=== PATIENT | male | born 1940 | race Caucasian/White ===

== ENCOUNTER 2019-02-25 11:50 | Inpatient (IN) | payer OTHER ==
[2019-02-25] MEDS ORDERED: VANCOMYCIN 1 GM in D5W (PRE-DOCKED) 1,000 MG/250 ML IVPB ONE ×2 (14:01→15:12)
[2019-02-25] MEDS ORDERED: PIPERACILLIN/TAZOB 3.375 GM 3.375 GM in DEXTROSE 5%-WATER - 50 ML IVPB ONE ×2 (14:01→15:12)
[2019-02-25] MEDS ORDERED: SODIUM CHLORIDE 1,000 ML IV STA (14:08)
--- NOTE | 2019-02-25 14:12 | PDOC ---
History of Present Illness - General Chief Complaint: Wound Stated Complaint: LF ANKLE INJURY (WOUND CARE) Time Seen by Provider: 02/25/19 13:31 History Source: Patient Exam Limitations: No Limitations - History of Present Illness Initial Comments: 02/25/19 14:11 78yM with PMH of Venous stasis presenting to ED from wound care for venous stasis ulcer of the L ankle. Pt noticed wound 1.5-2m ago and it has not been healing. Endorses some pain and swelling with erythema of L calf. Denies fever, chills, headache, abdominal pain, n/v/d, weakness, numbness/tingling, urinary symptoms. PMD: PMH: see hpi PSH: Meds: multivitamin Allergies: nkda Past History - Past Medical History Allergies/Adverse Reactions: Allergies Allergy/AdvReac Type Severity Reaction Status Date / Time No Known Allergies Allergy Verified 02/25/19 11:55 Home Medications: Ambulatory Orders Ocuvite (Nf) - 2 tab PO DAILY 11/26/18 Anemia: No Asthma: No Cancer: No Cardiac Disorders: No CVA: No COPD: No CHF: No Dementia: No Diabetes: No GI Disorders: No Disorders: No HTN: No Hypercholesterolemia: No Liver Disease: No Seizures: No Thyroid Disease: No - Surgical History Appendectomy: Yes (at 15 years old) - Psycho Social/Smoking Cessation Hx Smoking History: Current every day smoker Have you smoked in the past 12 months: Yes Number of Cigarettes Smoked Daily: 10 Information on smoking cessation initiated: No Review of Systems - Review of Systems Constitutional: No: Symptoms Reported HEENTM: No: Symptoms Reported Respiratory: No: Symptoms reported Cardiac (ROS): No: Symptoms Reported ABD/GI: No: Symptoms Reported : No: Symptoms Reported Musculoskeletal: Yes: See HPI Integumentary: Yes: See HPI Neurological: No: Symptoms reported *Physical Exam - Vital Signs Last Vital Signs Temp Pulse Resp BP Pulse Ox 98.1 F 72 18 88/59 L 98 02/25/19 11:52 02/25/19 11:52 02/25/19 11:52 02/25/19 11:52 02/25/19 11:52 - Physical Exam General Appearance: Yes: Appropriately Dressed, Obese. No: Apparent Distress HEENT: positive: EOMI, WILMA, Normal ENT Inspection Neck: positive: Trachea midline, Supple Respiratory/Chest: positive: Lungs Clear, Normal Breath Sounds. negative: Crackles, Rales, Rhonchi, Stridor, Wheezing Cardiovascular: positive: Regular Rhythm, Regular Rate, S1, S2. negative: Edema , JVD, Murmur Vascular Pulses: Dorsalis-Pedis (R): 2+, Doralis-Pedis (L): 2+ Gastrointestinal/Abdominal: positive: Normal Bowel Sounds, Soft. negative: Tender Musculoskeletal: negative: CVA Tenderness Extremity: positive: Normal Capillary Refill, Swelling (bilateral edema up to knees. L>R), Erythema (L calf), Other (deep ulceration around 3in in diameter to bone. no drainage, no erythema, no abscess). 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 Hagan) for admission for wound care to Dr. Kramer with consult to Dr. Back and Dr. Hagan. vitals: hypotension, not tachycardic, afebrile, pt is well appearing and ambulatory. wound appears clean. biopsy taken of bone 02/18. wound cultures grew p. Mirabilis directd to call Dr. Back when patient in ER, called office number which is disconnected. Paged over head, will call on cell. basic labs, crp, esr. cxr, ekg, ankle xray ekg: nsar at 80bpm L axis, no signs of acute ischemia. will admit. pending labs and call back from Dr. Back 02/25/19 15:[address] Back, message left on cell. starting vanc/zosy. 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
--- NOTE | 2019-02-25 14:31 | PDOC ---
Attending Attestation - Resident Resident Name: Allie Segura - ED Attending Attestation I have performed the following: I have examined & evaluated the patient, The case was reviewed & discussed with the resident, I agree w/resident's findings & plan, Exceptions are as noted - HPI HPI: 02/25/19 14:29 78 M with h/o venous stasis, presenting to ED for L ankle wound. Pt reports worsening wound over the past 2 months. Notes pain and swelling + redness. No F/ C. Pt was sent in for ID and vascular eval by Dr. Kramer. - Physicial Exam PE: 02/25/19 14:30 See resident exam - Medical Decision Making 02/25/19 14:31 78 M with L ankle ulcer, likely infected. - Labs - XR to r/o osteo - ID and vascular c/s
[2019-02-25 15:03] LABS: BASO % 1.1 % (0-2.0); HEMATOCRIT 38.9 % (35.4-49); HEMOGLOBIN 12.7 GM/dL (11.7-16.9); LYMPH % 29.8 % (8-40); MCHC 32.7 g/dl (32.0-35.9); MEAN CELL VOLUME 91.7 fl (80-96); MEAN PLT VOLUME 8.6 fl (7.5-11.1); MONO % 6.9 % (3.8-10.2); NEUT % 60.2 % (42.8-82.8); PLATELET COUNT 229 K/MM3 (134-434); RBC 4.24 M/mm3 (4.00-5.60); RDW 13.8 % (11.9-15.9); WHITE BLOOD COUNT 7.7 K/mm3 (4.0-10.0)
[2019-02-25 15:19] LABS: INR 1.08 (0.83-1.09); PROTHROMBIN TIME (PATIENT) 12.8 SEC (9.7-13.0)
[2019-02-25] MEDS ORDERED: VANCOMYCIN 1 GRAM (PRE-DOCKED) 1,000 MG/250 ML BAG IVPB ONE ×2 (15:50→16:25)
[2019-02-25] MEDS ORDERED: PIPERACILLIN/TAZOB 3.375 GM 3.375 GM/50 ML BAG IVPB ONE (15:50)
[2019-02-25 15:52] LABS: ALBUMIN 3.2 g/dl (3.4-5.0); BILIRUBIN,TOTAL 0.4 mg/dL (0.2-1); BLOOD UREA NITROGEN 28.1 mg/dL (7-18); CALCIUM 8.6 mg/dL (8.5-10.1); CREATININE 1.4 mg/dL (0.55-1.3); POTASSIUM 5.1 mmol/L (3.5-5.1); TOT PROT 6.9 g/dl (6.4-8.2)
[2019-02-25 15:56] LABS: ERYTHROCYTE SEDIMENTATION RATE 81 mm/hr (0-20)
[2019-02-26 00:49] VITALS: BMI 37.5
[2019-02-26 08:19] LABS: BASO % 1.1 % (0-2.0); EOS % 4.5 % (0-4.5); HEMATOCRIT 35.7 % (35.4-49); HEMOGLOBIN 11.7 GM/dL (11.7-16.9); LYMPH % 21.3 % (8-40); MCH 29.9 pg (25.7-33.7); MCHC 32.7 g/dl (32.0-35.9); MEAN CELL VOLUME 91.3 fl (80-96); MEAN PLT VOLUME 8.8 fl (7.5-11.1); MONO % 8.5 % (3.8-10.2); NEUT % 64.6 % (42.8-82.8); PLATELET COUNT 187 K/MM3 (134-434); RBC 3.91 M/mm3 (4.00-5.60); RDW 13.6 % (11.9-15.9); WHITE BLOOD COUNT 5.7 K/mm3 (4.0-10.0)
[2019-02-26 08:43] LABS: ALBUMIN 2.5 g/dl (3.4-5.0); BILIRUBIN,TOTAL 0.5 mg/dL (0.2-1); BLOOD UREA NITROGEN 26.8 mg/dL (7-18); CALCIUM 8.1 mg/dL (8.5-10.1); CREATININE 1.2 mg/dL (0.55-1.3); POTASSIUM 4.3 mmol/L (3.5-5.1); TOT PROT 5.8 g/dl (6.4-8.2)
[2019-02-26] MEDS ORDERED: DEXTROSE 5%-WATER - 50 ML IVPB ONE (09:08)
[2019-02-26] MEDS ORDERED: cefTRIAXone SODIUM 1 GM VIAL ONE (09:08)
--- NOTE | 2019-02-26 09:18 | EKG ---
Test Reason : Blood Pressure : / mmHG Vent. Rate : 080 BPM Atrial Rate : 080 BPM P-R Int : 164 ms QRS Dur : 094 ms QT Int : 408 ms P-R-T Axes : 000 -32 033 degrees QTc Int : 470 ms POOR DATA QUALITY, INTERPRETATION MAY BE ADVERSELY AFFECTED NORMAL SINUS RHYTHM WITH SINUS ARRHYTHMIA LEFT AXIS DEVIATION CANNOT RULE OUT ANTERIOR INFARCT , AGE UNDETERMINED ABNORMAL ECG NO PREVIOUS ECGS AVAILABLE Confirmed by TERENCE MCMILLAN, JERICA ([id number]) on 02/26/2019 9:18:25 AM Referred By: Confirmed By:JERICA PRATT MD
[2019-02-26] MEDS: HEPARIN NA (PORCINE) 5,000 UNITS/ML 1ML VIAL SQ SCH ×2 (09:32→21:53)
[2019-02-26] MEDS ORDERED: CEFTRIAXONE 1 GM in DEXTROSE 5%-WATER - 50 ML IVPB SCH (10:00)
[2019-02-26] MEDS ORDERED: PNEUMOC 13-VAL CONJ-DIP CRM/PF 0.5 ML DISP.SYRIN IM ONE (10:00)
--- NOTE | 2019-02-26 10:32 | CON.ID ---
Consult Consult Specialty:: infectious diseases Referred by:: Reason for Consultation:: osteo of the foot - History of Present Illness Chief Complaint: non healing ulcer of the foot History of Present Illness: 78yM with PMH of Venous stasis presenting with non healing wound of the ankle . Pt noticed wound 1.5-2m ago and it has not been healing. Endorses some pain and swelling with erythema of L calf. Denies fever, chills, headache, abdominal pain , n/v/d, weakness, numbness/tingling, urinary sym initially when patient came to the wound care center there was bone sticking out of the wound and biopsy was done which was growing proteus from the bone also mri done shows osteo patient wound started detoriating and legs became red and patient is getting admitted for iv abx and mgmt of oste also will need debridement - History Source History Provided By: Patient Limitations to Obtaining History: No Limitations - Smoking History Smoking history: Current every day smoker Have you smoked in the past 12 months: Yes Aproximately how many cigarettes per day: 12 Home Medications - Allergies Allergies/Adverse Reactions: Allergies Allergy/AdvReac Type Severity Reaction Status Date / Time No Known Allergies Allergy Verified 02/25/19 11:55 - Home Medications Home Medications: Ambulatory Orders Unobtainable 02/25/19 Review of Systems - Review of Systems Constitutional: reports: No Symptoms Eyes: reports: No Symptoms HENT: reports: No Symptoms Neck: reports: No Symptoms Cardiovascular: reports: No Symptoms Respiratory: reports: No Symptoms Gastrointestinal: reports: No Symptoms Genitourinary: reports: No Symptoms Musculoskeletal: reports: No Symptoms Integumentary: reports: Erythema, Wound Neurological: reports: No Symptoms Endocrine: reports: No Symptoms Hematology/Lymphatic: reports: No Symptoms Psychiatric: reports: No Symptoms Physical Exam Vital Signs: Vital Signs Temperature 97.8 F 02/26/19 06:00 Pulse Rate 63 02/26/19 06:00 Respiratory Rate 18 02/26/19 06:00 Blood Pressure 133/68 02/26/19 06:00 O2 Sat by Pulse Oximetry (%) 96 02/25/19 21:00 Constitutional: Yes: Well Nourished, Calm, Mild Distress, Obese Eyes: Yes: Conjunctiva Clear HENT: Yes: Atraumatic, Normocephalic Neck: Yes: Supple, Trachea Midline Cardiovascular: Yes: Regular Rate and Rhythm Respiratory: Yes: Regular, CTA Bilaterally Gastrointestinal: Yes: Normal Bowel Sounds, Soft Musculoskeletal: Yes: WNL Extremities: Yes: Erythema, Other Wound/Incision: Yes: Dressing Dry and Intact, Other (slough present) Neurological: Yes: Alert, Oriented Psychiatric: Yes: Alert, Oriented Labs: CBC, BMP 02/26/19 06:45 02/26/19 06:45 Imaging - Results MRI: Report Reviewed, Image Reviewed Assessment/Plan this patient coming to the hospital with cellulitis of the leg and osteo of the foot cx results noted will start patient on ceftriaxone wound care will need debridement of the foot
[2019-02-26] MEDS ORDERED: PT OWN MED DRAWER 7, Y5N ONE (11:02)
--- NOTE | 2019-02-26 14:16 | HP ---
Admitting History and Physical - Admission History of Present Illness: Pt is a 78 y/omale w/ PMH significant for venous stasis. Pt presented to the ED for nonhealing wound of Lt ankle. Pt reports worsening wound over the past 2 months. Pt also complains of pain/swelling/redness of lt calf. Initially when patient came to the wound care center there was bone sticking out of the wound and biopsy was done which was growing proteus from the bone and MRI also showed osteo. - Past Medical History Infectious Disease: Yes: Other (Osteomyelitis) - Smoking History Smoking history: Current every day smoker Have you smoked in the past 12 months: Yes Aproximately how many cigarettes per day: 12 Home Medications - Allergies Allergies/Adverse Reactions: Allergies Allergy/AdvReac Type Severity Reaction Status Date / Time No Known Allergies Allergy Verified 02/25/19 11:55 - Home Medications Home Medications: Ambulatory Orders Unobtainable 02/25/19 Family Medical History Family History: Unremarkable Review of Systems - Review of Systems Constitutional: reports: No Symptoms Eyes: reports: No Symptoms HENT: reports: No Symptoms Neck: reports: No Symptoms Cardiovascular: reports: No Symptoms Respiratory: reports: No Symptoms Gastrointestinal: reports: No Symptoms Genitourinary: reports: No Symptoms Physical Examination Vital Signs: Vital Signs Temperature 98.2 F 02/26/19 09:30 Pulse Rate 75 02/26/19 09:30 Respiratory Rate 17 02/26/19 09:30 Blood Pressure 126/69 02/26/19 09:30 O2 Sat by Pulse Oximetry (%) 96 02/26/19 09:30 Constitutional: Yes: Obese Eyes: Yes: WNL HENT: Yes: WNL Neck: Yes: WNL, Supple Cardiovascular: Yes: WNL, Regular Rate and Rhythm Respiratory: Yes: WNL, Regular, CTA Bilaterally Gastrointestinal: Yes: WNL, Normal Bowel Sounds, Soft Extremities: Yes: Other (Lt foot ulcer w/ erythema) Edema: LLE: Trace, RLE: Trace Labs: CBC, BMP 02/26/19 06:45 02/26/19 06:45 Problem List - Problems (1) Osteomyelitis Assessment/Plan: Cont IV ceftriaxone ID consult noted Vascular consult Code(s): M86.9 - OSTEOMYELITIS, UNSPECIFIED (2) Ulcer of left ankle Assessment/Plan: Cont IV ceftriaxone Code(s): L97.329 - NON-PRESSURE CHRONIC ULCER OF LEFT ANKLE WITH UNSP SEVERITY Qualifiers: Non-pressure ulcer stage: with necrosis of muscle Qualified Code(s): 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
[2019-02-26] MEDS: COLLAGENASE CLOSTRIDIUM HIST. 30 GRAMS TUBE TP SCH (14:46)
[2019-02-26] MEDS: NICOTINE 14 MG/24 HOURS TOPICAL PATCH TD SCH (21:53)
[2019-02-27 07:34] LABS: BASO % 0.7 % (0-2.0); EOS % 5.2 % (0-4.5); HEMATOCRIT 36.2 % (35.4-49); HEMOGLOBIN 11.8 GM/dL (11.7-16.9); LYMPH % 29.2 % (8-40); MCH 29.9 pg (25.7-33.7); MCHC 32.7 g/dl (32.0-35.9); MEAN CELL VOLUME 91.3 fl (80-96); NEUT % 57.9 % (42.8-82.8); PLATELET COUNT 203 K/MM3 (134-434); RBC 3.96 M/mm3 (4.00-5.60); RDW 13.3 % (11.9-15.9); WHITE BLOOD COUNT 5.6 K/mm3 (4.0-10.0)
[2019-02-27 07:42] LABS: ALBUMIN 2.6 g/dl (3.4-5.0); BILIRUBIN,TOTAL 0.3 mg/dL (0.2-1); BLOOD UREA NITROGEN 22.8 mg/dL (7-18); CALCIUM 8.5 mg/dL (8.5-10.1); POTASSIUM 4.2 mmol/L (3.5-5.1)
[2019-02-27] MEDS ORDERED: DEXTROSE 5%-WATER 100 ML IVPB ONE (09:07)
[2019-02-27] MEDS: HEPARIN NA (PORCINE) 5,000 UNITS/ML 1ML VIAL SQ SCH ×2 (09:22→21:27)
[2019-02-27] MEDS: NICOTINE 14 MG/24 HOURS TOPICAL PATCH TD SCH (09:22)
[2019-02-27] MEDS: CEFTRIAXONE 2 GM in DEXTROSE 5%-WATER 100 ML IVPB SCH (09:22)
--- NOTE | 2019-02-27 13:15 | PN ---
Progress Note, Physician History of Present Illness: stable no new issues - Current Medication List Current Medications: Active Medications Collagenase (Santyl -) 1 applic TP DAILY [facility]; Protocol Last Admin: 02/26/19 14:46 Dose: 1 applic Heparin Sodium (Porcine) (Heparin -) 5,000 unit SQ BID [facility] Last Admin: 02/27/19 09:22 Dose: 5,000 unit Ceftriaxone Sodium 2 gm/ (Dextrose) 100 mls @ 200 mls/hr IVPB DAILY [facility]; Protocol Last Admin: 02/27/19 09:22 Dose: 200 mls/hr Nicotine (Nicoderm Patch -) 14 mg TD DAILY [facility] Last Admin: 02/27/19 09:22 Dose: 14 mg - Objective Vital Signs: Vital Signs Temperature 98.2 F 02/27/19 09:15 Pulse Rate 70 02/27/19 09:15 Respiratory Rate 17 02/27/19 09:15 Blood Pressure 128/64 02/27/19 09:15 O2 Sat by Pulse Oximetry (%) 96 02/27/19 09:15 Constitutional: Yes: No Distress, Calm Cardiovascular: Yes: Regular Rate and Rhythm Respiratory: Yes: Regular, CTA Bilaterally Gastrointestinal: Yes: Normal Bowel Sounds, Soft Musculoskeletal: Yes: WNL Extremities: Yes: WNL Wound/Incision: Yes: Dressing Dry and Intact Neurological: Yes: Alert, Oriented Psychiatric: Yes: Alert, Oriented Labs: CBC, BMP 02/27/19 06:05 02/27/19 06:05 INR, PTT INR 1.08 (0.83-1.09) 02/25/19 14:45 Assessment/Plan continue abx crp noted abx will need it for 6 weeks picc line tomorrow wound care
[2019-02-27] MEDS: COLLAGENASE CLOSTRIDIUM HIST. 30 GRAMS TUBE TP SCH (16:10)
--- NOTE | 2019-02-27 23:44 | PN ---
Progress Note, Physician History of Present Illness: No new complaints - Current Medication List Current Medications: Active Medications Collagenase (Santyl -) 1 applic TP DAILY [facility]; Protocol Last Admin: 02/27/19 16:10 Dose: 1 applic Heparin Sodium (Porcine) (Heparin -) 5,000 unit SQ BID [facility] Last Admin: 02/27/19 21:27 Dose: 5,000 unit Ceftriaxone Sodium 2 gm/ (Dextrose) 100 mls @ 200 mls/hr IVPB DAILY [facility]; Protocol Last Admin: 02/27/19 09:22 Dose: 200 mls/hr Nicotine (Nicoderm Patch -) 14 mg TD DAILY [facility] Last Admin: 02/27/19 09:22 Dose: 14 mg - Objective Vital Signs: Vital Signs Temperature 97.9 F 02/27/19 22:00 Pulse Rate 63 02/27/19 22:00 Respiratory Rate 18 02/27/19 22:00 Blood Pressure 121/68 02/27/19 22:00 O2 Sat by Pulse Oximetry (%) 96 02/27/19 21:00 Constitutional: Yes: Well Nourished Neck: Yes: WNL, Supple Cardiovascular: Yes: WNL, Regular Rate and Rhythm Respiratory: Yes: WNL, Regular, CTA Bilaterally Gastrointestinal: Yes: WNL, Normal Bowel Sounds, Soft, Abdomen, Obese Extremities: Yes: Other (Lt foot ulcer w/ chronic venous stasis) Edema: LLE: Trace, RLE: Trace Labs: CBC, BMP 02/27/19 06:05 02/27/19 06:05 INR, PTT INR 1.08 (0.83-1.09) 02/25/19 14:45 Problem List - Problems (1) Osteomyelitis Assessment/Plan: Cont IV ceftriaxone for at least another 6 weeks Probable PICC line placement Will speak w/ ID Code(s): M86.9 - OSTEOMYELITIS, UNSPECIFIED (2) Ulcer of left ankle Assessment/Plan: Cont IV ceftriaxone Code(s): L97.329 - NON-PRESSURE CHRONIC ULCER OF LEFT ANKLE WITH UNSP SEVERITY Qualifiers: Non-pressure ulcer stage: with necrosis of muscle Qualified Code(s): 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
[2019-02-28 08:19] LABS: BASO % 0.8 % (0-2.0); EOS % 5.3 % (0-4.5); HEMATOCRIT 38.5 % (35.4-49); LYMPH % 25.3 % (8-40); MCH 30.7 pg (25.7-33.7); MCHC 33.7 g/dl (32.0-35.9); MEAN CELL VOLUME 91.1 fl (80-96); MEAN PLT VOLUME 8.4 fl (7.5-11.1); MONO % 6.7 % (3.8-10.2); NEUT % 61.9 % (42.8-82.8); PLATELET COUNT 223 K/MM3 (134-434); RBC 4.22 M/mm3 (4.00-5.60); RDW 13.3 % (11.9-15.9)
[2019-02-28 09:06] LABS: ALBUMIN 2.9 g/dl (3.4-5.0); BILIRUBIN,TOTAL 0.5 mg/dL (0.2-1); BLOOD UREA NITROGEN 22.5 mg/dL (7-18); CALCIUM 8.7 mg/dL (8.5-10.1); CREATININE 1.1 mg/dL (0.55-1.3); POTASSIUM 4.6 mmol/L (3.5-5.1); TOT PROT 6.7 g/dl (6.4-8.2)
[2019-02-28] MEDS ORDERED: DEXTROSE 5%-WATER 100 ML IVPB ONE (09:17)
[2019-02-28] MEDS: CEFTRIAXONE 2 GM in DEXTROSE 5%-WATER 100 ML IVPB SCH (09:46)
[2019-02-28] MEDS: NICOTINE 14 MG/24 HOURS TOPICAL PATCH TD SCH (09:48)
[2019-02-28] MEDS: HEPARIN NA (PORCINE) 5,000 UNITS/ML 1ML VIAL SQ SCH ×2 (09:49→21:29)
[2019-02-28] MEDS: COLLAGENASE CLOSTRIDIUM HIST. 30 GRAMS TUBE TP SCH (11:52)
--- NOTE | 2019-02-28 11:55 | CONSULT ---
Consult Consult Specialty:: Podiatry Reason for Consultation:: Wound Left leg - History of Present Illness History of Present Illness: Chronic wound left leg - History Source History Provided By: Patient, Medical Record - Past Medical History Infectious Disease: Yes: Other (Osteomyelitis) - Smoking History Smoking history: Current every day smoker Have you smoked in the past 12 months: Yes Aproximately how many cigarettes per day: 12 Home Medications - Allergies Allergies/Adverse Reactions: Allergies Allergy/AdvReac Type Severity Reaction Status Date / Time No Known Allergies Allergy Verified 02/25/19 11:55 - Home Medications Home Medications: Ambulatory Orders Unobtainable 02/25/19 Physical Exam Vital Signs: Vital Signs Temperature 98.5 F 02/28/19 06:00 Pulse Rate 59 L 02/28/19 06:00 Respiratory Rate 18 02/28/19 06:00 Blood Pressure 125/65 02/28/19 06:00 O2 Sat by Pulse Oximetry (%) 96 02/27/19 21:00 Extremities: Yes: Other (grade 2-3 wound medial left ankle x 2, +slough, + drainage, +odor) Labs: CBC, BMP 02/28/19 07:15 02/28/19 07:15 Imaging - Results X-ray: Report Reviewed Assessment/Plan om? grade 3 wound Recommend HBO. Recommend Change to Betadine dressing change from Santyl. MRI ordered. May need debridement by vascular. Will follow.
--- NOTE | 2019-02-28 13:46 | PN ---
Progress Note, Physician History of Present Illness: stable no new issues - Current Medication List Current Medications: Active Medications Collagenase (Santyl -) 1 applic TP DAILY [facility]; Protocol Last Admin: 02/28/19 11:52 Dose: Not Given Heparin Sodium (Porcine) (Heparin -) 5,000 unit SQ BID [facility] Last Admin: 02/28/19 09:49 Dose: 5,000 unit Ceftriaxone Sodium 2 gm/ (Dextrose) 100 mls @ 200 mls/hr IVPB DAILY [facility]; Protocol Last Admin: 02/28/19 09:46 Dose: 200 mls/hr Nicotine (Nicoderm Patch -) 14 mg TD DAILY [facility] Last Admin: 02/28/19 09:48 Dose: 14 mg - Objective Vital Signs: Vital Signs Temperature 97.6 F 02/28/19 11:00 Pulse Rate 75 02/28/19 11:00 Respiratory Rate 20 02/28/19 11:00 Blood Pressure 118/61 02/28/19 11:00 O2 Sat by Pulse Oximetry (%) 99 02/28/19 09:00 Constitutional: Yes: No Distress, Calm Cardiovascular: Yes: S1, S2 Respiratory: Yes: Regular, CTA Bilaterally Gastrointestinal: Yes: Normal Bowel Sounds, Soft Musculoskeletal: Yes: WNL Extremities: Yes: Other Wound/Incision: Yes: Dressing Dry and Intact Neurological: Yes: Alert, Oriented Psychiatric: Yes: Alert, Oriented Labs: CBC, BMP 02/28/19 07:15 02/28/19 07:15 INR, PTT INR 1.08 (0.83-1.09) 02/25/19 14:45 Assessment/Plan continue abx crp noted abx will need it for 6 weeks picc line wound care patient with osteo of the leg
--- NOTE | 2019-02-28 15:20 | PN ---
Progress Note (short form) - Note Progress Note: Vascular Surgery: Pt known to the vascular services. He was just seen in the office on 02/18/19 and had a bone biopsy taken from his left ankle. The patient has a chronic history of venous stasis and ulcers to lower extremities. This past ulcer he has had for several months. He has been going to the wound clinic for treatment with Dr. Hagan and was sent for Iv abx. I spoke with Dr. Matos who ordered a MRI to better evaluate the level of disease in the ankle. The patient denies any fever or chills. Vital Signs Period Temp Pulse Resp BP Sys/Zhou Pulse Ox Last 24 Hr 97.3 F-98.5 F 59-75 18-20 114-126/61-68 96-99 PMHX: smoking x 65 years, denies any heart h/o CP/SOB PSHX: appendectomy, Left knee abscess GEN: A&0x3, NAd b/l LE: Right leg with compression stocking. +2 dp pulse, no edema LLE: with medial ankle ulcer and palpable sharp bone. Ulcer 5x3cm and 2 x1cm with a skin bridge. [place] granulation tissue at base with some fibrinous exudate. chronic venous stasis, +2 Dp pulse. CBC, BMP 02/28/19 07:15 02/28/19 07:15 Bone biopsy with evidence of osteomyelitis from 02/18/2019. Left ankle xray: calcaneal spurring, soft tissue swelling, degenerative changes and calcifications A/P: 78 yo male with chronic venous stasis and left leg ulcer Continue local wound care with addison D/w Dr. Hagan and Dr. Mullins, MRI to be completed to determine the level of osteomyelitis/disease of his left ankle
--- NOTE | 2019-02-28 18:29 | PN ---
Progress Note, Physician History of Present Illness: stable - Current Medication List Current Medications: Active Medications Collagenase (Santyl -) 1 applic TP DAILY [facility]; Protocol Last Admin: 02/28/19 11:52 Dose: Not Given Heparin Sodium (Porcine) (Heparin -) 5,000 unit SQ BID [facility] Last Admin: 02/28/19 09:49 Dose: 5,000 unit Ceftriaxone Sodium 2 gm/ (Dextrose) 100 mls @ 200 mls/hr IVPB DAILY [facility]; Protocol Last Admin: 02/28/19 09:46 Dose: 200 mls/hr Nicotine (Nicoderm Patch -) 14 mg TD DAILY [facility] Last Admin: 02/28/19 09:48 Dose: 14 mg - Objective Vital Signs: Vital Signs Temperature 97.3 F L 02/28/19 15:10 Pulse Rate 63 02/28/19 15:10 Respiratory Rate 02/28/19 15:10 Blood Pressure 126/62 02/28/19 15:10 O2 Sat by Pulse Oximetry (%) 99 02/28/19 09:00 Constitutional: Yes: No Distress HENT: Yes: Atraumatic Neck: Yes: Supple Cardiovascular: Yes: Regular Rate and Rhythm Respiratory: Yes: CTA Bilaterally Gastrointestinal: Yes: Normal Bowel Sounds Extremities: Yes: Other (L ankle ulcer) Neurological: Yes: Alert, Oriented Labs: CBC, BMP 02/28/19 07:15 02/28/19 07:15 INR, PTT INR 1.08 (0.83-1.09) 02/25/19 14:45 Problem List - Problems (1) Osteomyelitis Assessment/Plan: iv abx wound id onboard Code(s): M86.9 - OSTEOMYELITIS, UNSPECIFIED (2) Ulcer of left ankle Code(s): L97.329 - NON-PRESSURE CHRONIC ULCER OF LEFT ANKLE WITH UNSP SEVERITY Qualifiers: Non-pressure ulcer stage: with necrosis of muscle Qualified Code(s): 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 Assessment/Plan covering for dr lehman
[2019-03-01 02:25] VITALS: TEMP 98.7
[2019-03-01] MEDS ORDERED: DEXTROSE 5%-WATER 100 ML IVPB ONE (10:23)
[2019-03-01] MEDS: CEFTRIAXONE 2 GM in DEXTROSE 5%-WATER 100 ML IVPB SCH (10:53)
[2019-03-01] MEDS: NICOTINE 14 MG/24 HOURS TOPICAL PATCH TD SCH (10:53)
[2019-03-01] MEDS: HEPARIN NA (PORCINE) 5,000 UNITS/ML 1ML VIAL SQ SCH (10:57)
--- NOTE | 2019-03-01 12:25 | PN ---
Progress Note, Physician History of Present Illness: stable no new issues - Current Medication List Current Medications: Active Medications Collagenase (Santyl -) 1 applic TP DAILY [facility]; Protocol Last Admin: 02/28/19 11:52 Dose: Not Given Heparin Sodium (Porcine) (Heparin -) 5,000 unit SQ BID [facility] Last Admin: 03/01/19 10:57 Dose: 5,000 unit Ceftriaxone Sodium 2 gm/ (Dextrose) 100 mls @ 200 mls/hr IVPB DAILY [facility]; Protocol Last Admin: 03/01/19 10:53 Dose: 200 mls/hr Nicotine (Nicoderm Patch -) 14 mg TD DAILY [facility] Last Admin: 03/01/19 10:53 Dose: 14 mg - Objective Vital Signs: Vital Signs Temperature 98.7 F 03/01/19 06:00 Pulse Rate 72 03/01/19 06:00 Respiratory Rate 20 03/01/19 06:00 Blood Pressure 122/53 L 03/01/19 06:00 O2 Sat by Pulse Oximetry (%) 100 02/28/19 21:00 Constitutional: Yes: No Distress, Calm Cardiovascular: Yes: S1, S2 Respiratory: Yes: Regular, CTA Bilaterally Gastrointestinal: Yes: Normal Bowel Sounds, Soft Musculoskeletal: Yes: WNL Extremities: Yes: Other Neurological: Yes: Alert, Oriented Psychiatric: Yes: Alert, Oriented Labs: CBC, BMP 02/28/19 07:15 02/28/19 07:15 INR, PTT INR 1.08 (0.83-1.09) 02/25/19 14:45 Assessment/Plan continue abx crp noted abx will need it for 6 weeks picc line wound care patient with osteo of the leg plan ceftriaxone 2g daily for 6 weeks
[2019-03-01 13:46] VITALS: BP 136/72; PULSE 69
== END 2019-03-01 15:17 | disposition home or self-care (01) | DRG 540 ==
LOC: JER 11:50 → JERBED 15:11 → J6S 20:29
PROVIDERS: ADMIT Internal Medicine; ATTEND Internal Medicine
PROC: 02HV33Z Insertion of Infusion Device into Superior Vena Cava, Percutaneous Approach (ICD-10-PCS; principal; 2019-03-01)
PROC: B518ZZA Fluoroscopy of Superior Vena Cava, Guidance (ICD-10-PCS; 2019-03-01)
DX: M86.8X7 Other osteomyelitis, ankle and foot (principal); L97.328 Non-pressure chronic ulcer of left ankle with other specified severity; L03.116 Cellulitis of left lower limb; I96 Gangrene, not elsewhere classified; L97.323 Non-pressure chronic ulcer of left ankle with necrosis of muscle; I83.023 Varicose veins of left lower extremity with ulcer of ankle; F17.210 Nicotine dependence, cigarettes, uncomplicated; I95.9 Hypotension, unspecified; E66.9 Obesity, unspecified; Z68.37 Body mass index [BMI] 37.0-37.9, adult
CPT/HCPCS: 36415; 36569; 71045-TC-FY; 73610-TC-LT-FY; 77001-TC-FY; 80053; 85025; 85610; 85651; 86140; 90670; 93005; 93010; 99285-25; C1751; G0463-25; J1644; J7030

== ENCOUNTER 2019-03-02 11:17 | Day surgery (SDC) | payer OTHER ==
[~2019-03-02 11:17] MED LIST: CEFTRIAXONE 2 GM in DEXTROSE 5%-WATER 100 ML IVPB ONE
[2019-03-02 12:51] VITALS: BP 127/59; PULSE 81; TEMP 97.9
== END 2019-03-02 12:52 | disposition home or self-care (01) ==
LOC: JINFUSION 11:17
PROVIDERS: ATTEND Internal Medicine Infectious Disease
DX: M86.8X7 Other osteomyelitis, ankle and foot (principal); L97.323 Non-pressure chronic ulcer of left ankle with necrosis of muscle
CPT/HCPCS: 96365

== ENCOUNTER → 2019-03-03 | Day surgery (SDC) | payer OTHER ==
[~2019-03-03] MED LIST changes: +DEXTROSE 5%-WATER 100 ML IVPB ONE
[2019-03-03 12:51] VITALS: BP 123/60; PULSE 83; TEMP 97.9
== END | disposition home or self-care (01) ==
LOC: JINFUSION 11:13
PROVIDERS: ATTEND Internal Medicine Infectious Disease
DX: M86.8X7 Other osteomyelitis, ankle and foot (principal); L97.323 Non-pressure chronic ulcer of left ankle with necrosis of muscle
CPT/HCPCS: 96365

== ENCOUNTER 2019-03-04 12:21 | Day surgery (SDC) | payer OTHER ==
[~2019-03-04 12:21] MED LIST changes: -DEXTROSE 5%-WATER 100 ML IVPB ONE
[2019-03-04] MEDS ORDERED: SODIUM CHLORIDE 100 ML IVPB ONE (13:31)
[2019-03-04 13:52] VITALS: PULSE 78; TEMP 97.7
[2019-03-04 14:27] VITALS: BP 129/60
== END 2019-03-04 14:20 | disposition home or self-care (01) ==
LOC: JINFUSION 12:21
PROVIDERS: ATTEND Internal Medicine Infectious Disease
DX: M86.8X7 Other osteomyelitis, ankle and foot (principal); L97.323 Non-pressure chronic ulcer of left ankle with necrosis of muscle; I87.332 Chronic venous hypertension (idiopathic) with ulcer and inflammation of left lower extremity; M86.162 Other acute osteomyelitis, left tibia and fibula; F17.210 Nicotine dependence, cigarettes, uncomplicated
CPT/HCPCS: 11042; 11044; 11045; 29581-LT; 96365; 99406

== ENCOUNTER 2019-03-05 10:45 | Day surgery (SDC) | payer OTHER ==
[2019-03-05] MEDS ORDERED: DEXTROSE 5%-WATER 100 ML IVPB ONE (11:50)
[2019-03-05] MEDS ORDERED: CEFTRIAXONE 2 GM in DEXTROSE 5%-WATER 100 ML IVPB ONE (12:00)
[2019-03-05 13:25] VITALS: BP 124/71; PULSE 74; TEMP 98.2
== END 2019-03-05 12:40 | disposition home or self-care (01) ==
LOC: J7W 10:45 → JINFUSION 10:45
PROVIDERS: ATTEND Internal Medicine Infectious Disease
DX: M86.8X7 Other osteomyelitis, ankle and foot (principal); L97.323 Non-pressure chronic ulcer of left ankle with necrosis of muscle
CPT/HCPCS: 96365

== ENCOUNTER 2019-03-06 11:17 | Day surgery (SDC) | payer OTHER ==
[2019-03-06] MEDS ORDERED: DEXTROSE 5%-WATER 100 ML IVPB ONE (13:10)
[2019-03-06] MEDS ORDERED: CEFTRIAXONE 2 GM in DEXTROSE 5%-WATER 100 ML IVPB ONE (13:15)
[2019-03-06 13:20] VITALS: TEMP 97.4
[2019-03-06 15:00] VITALS: BP 134/66; PULSE 74
== END 2019-03-06 14:00 | disposition home or self-care (01) ==
LOC: J7W 11:17 → JINFUSION 11:17
PROVIDERS: ATTEND Internal Medicine Infectious Disease
DX: M86.8X7 Other osteomyelitis, ankle and foot (principal); L97.323 Non-pressure chronic ulcer of left ankle with necrosis of muscle
CPT/HCPCS: 96365

== ENCOUNTER 2019-03-07 12:37 | Day surgery (SDC) | payer OTHER ==
[2019-03-07] MEDS ORDERED: DEXTROSE 5%-WATER 100 ML IVPB ONE (13:40)
[2019-03-07] MEDS ORDERED: CEFTRIAXONE 2 GM in DEXTROSE 5%-WATER 100 ML IVPB ONE (13:45)
[2019-03-07 14:32] LABS: HEMATOCRIT 36.7 % (35.4-49); MCH 30.3 pg (25.7-33.7); MCHC 32.8 g/dl (32.0-35.9); MEAN CELL VOLUME 92.5 fl (80-96); MEAN PLT VOLUME 8.9 fl (7.5-11.1); PLATELET COUNT 191 K/MM3 (134-434); RBC 3.97 M/mm3 (4.00-5.60); RDW 14.1 % (11.9-15.9); WHITE BLOOD COUNT 5.3 K/mm3 (4.0-10.0)
[2019-03-07 14:39] VITALS: TEMP 97.8
[2019-03-07 14:40] VITALS: BP 111/60; PULSE 71
[2019-03-07 15:23] LABS: BLOOD UREA NITROGEN 27.2 mg/dL (7-18); CREATININE 0.9 mg/dL (0.55-1.3); POTASSIUM 3.6 mmol/L (3.5-5.1)
== END 2019-03-07 14:41 | disposition home or self-care (01) ==
LOC: JINFUSION 12:37 → J7W 12:38 → JINFUSION 14:41
PROVIDERS: ATTEND Internal Medicine Infectious Disease
DX: M86.8X7 Other osteomyelitis, ankle and foot (principal); L97.323 Non-pressure chronic ulcer of left ankle with necrosis of muscle
CPT/HCPCS: 36415; 80048; 85027; 86140; 96365; G0277

== ENCOUNTER 2019-03-08 12:28 | Day surgery (SDC) | payer OTHER ==
[2019-03-08] MEDS ORDERED: DEXTROSE 5%-WATER 100 ML IVPB ONE (13:19)
[2019-03-08] MEDS ORDERED: CEFTRIAXONE 2 GM in DEXTROSE 5%-WATER 100 ML IVPB ONE (13:45)
[2019-03-08 14:01] VITALS: TEMP 97.8
[2019-03-08 14:44] VITALS: BP 143/66; PULSE 74
== END 2019-03-08 14:30 | disposition home or self-care (01) ==
LOC: JINFUSION 12:28
PROVIDERS: ATTEND Internal Medicine Infectious Disease
DX: M86.8X7 Other osteomyelitis, ankle and foot (principal); L97.323 Non-pressure chronic ulcer of left ankle with necrosis of muscle; M86.372 Chronic multifocal osteomyelitis, left ankle and foot
CPT/HCPCS: 96365; G0277

== ENCOUNTER 2019-03-09 13:06 | Day surgery (SDC) | payer OTHER ==
[2019-03-09] MEDS ORDERED: SODIUM CHLORIDE 100 ML IVPB ONE (13:10)
[2019-03-09 13:37] VITALS: TEMP 98.3
[2019-03-09 14:00] VITALS: BP 120/57; PULSE 80
== END 2019-03-09 14:05 | disposition home or self-care (01) ==
LOC: JINFUSION 13:06
PROVIDERS: ATTEND Internal Medicine Infectious Disease
DX: M86.8X7 Other osteomyelitis, ankle and foot (principal); L97.323 Non-pressure chronic ulcer of left ankle with necrosis of muscle
CPT/HCPCS: 96365; G0277

== ENCOUNTER 2019-03-10 12:30 | Day surgery (SDC) | payer OTHER ==
[2019-03-10] MEDS ORDERED: DEXTROSE 5%-WATER 100 ML IVPB ONE (12:58)
[2019-03-10 13:17] VITALS: TEMP 97.9
[2019-03-10 13:49] VITALS: BP 113/56; PULSE 74
== END 2019-03-10 14:11 | disposition home or self-care (01) ==
LOC: JINFUSION 12:30
PROVIDERS: ATTEND Internal Medicine Infectious Disease
DX: M86.8X7 Other osteomyelitis, ankle and foot (principal); L97.323 Non-pressure chronic ulcer of left ankle with necrosis of muscle
CPT/HCPCS: 96365; G0277

== ENCOUNTER 2019-03-11 09:33 | Day surgery (SDC) | payer OTHER ==
[2019-03-11] MEDS ORDERED: CEFTRIAXONE 2 GM in DEXTROSE 5%-WATER 100 ML IVPB ONE (10:00)
[2019-03-11] MEDS ORDERED: DEXTROSE 5%-WATER 100 ML IVPB ONE (12:21)
[2019-03-11 12:37] VITALS: TEMP 97.9
[2019-03-11 13:47] VITALS: BP 135/58; PULSE 74
== END 2019-03-11 13:15 | disposition home or self-care (01) ==
LOC: JINFUSION 09:33
PROVIDERS: ATTEND Internal Medicine Infectious Disease
DX: M86.8X7 Other osteomyelitis, ankle and foot (principal); L97.323 Non-pressure chronic ulcer of left ankle with necrosis of muscle
CPT/HCPCS: 96365; G0277

== ENCOUNTER 2019-03-12 10:27 | Day surgery (SDC) | payer OTHER ==
[2019-03-12] MEDS ORDERED: CEFTRIAXONE 2 GM in DEXTROSE 5%-WATER 100 ML IVPB ONE (11:15)
[2019-03-12] MEDS ORDERED: DEXTROSE 5%-WATER 100 ML IVPB ONE (11:19)
[2019-03-12 16:17] VITALS: BP 111/56; PULSE 75; TEMP 98.5
== END 2019-03-12 12:15 | disposition home or self-care (01) ==
LOC: J7W 10:27 → JINFUSION 10:27
PROVIDERS: ATTEND Internal Medicine Infectious Disease
DX: M86.8X7 Other osteomyelitis, ankle and foot (principal); L97.323 Non-pressure chronic ulcer of left ankle with necrosis of muscle
CPT/HCPCS: 96365

== ENCOUNTER 2019-03-13 10:32 | Day surgery (SDC) | payer OTHER ==
[2019-03-13 11:03] VITALS: TEMP 97.8
[2019-03-13] MEDS ORDERED: CEFTRIAXONE 2 GM in DEXTROSE 5%-WATER 100 ML IVPB ONE (11:15)
[2019-03-13] MEDS ORDERED: DEXTROSE 5%-WATER 100 ML IVPB ONE (11:32)
[2019-03-13 12:28] VITALS: BP 140/66; PULSE 68
== END 2019-03-13 12:28 | disposition home or self-care (01) ==
LOC: JINFUSION 10:32 → J7W 10:32 → JINFUSION 12:28
PROVIDERS: ATTEND Internal Medicine Infectious Disease
DX: M86.8X7 Other osteomyelitis, ankle and foot (principal); L97.323 Non-pressure chronic ulcer of left ankle with necrosis of muscle
CPT/HCPCS: 96365

== ENCOUNTER 2019-03-14 09:46 | Day surgery (SDC) | payer OTHER ==
[2019-03-14] MEDS ORDERED: DEXTROSE 5%-WATER 100 ML IVPB ONE (12:42)
[2019-03-14 13:19] VITALS: TEMP 97
[2019-03-14 13:57] VITALS: BP 107/84; PULSE 77
== END 2019-03-14 13:57 | disposition home or self-care (01) ==
LOC: JINFUSION 09:46
PROVIDERS: ATTEND Internal Medicine Infectious Disease
DX: M86.8X7 Other osteomyelitis, ankle and foot (principal); L97.323 Non-pressure chronic ulcer of left ankle with necrosis of muscle
CPT/HCPCS: 96365; G0277

== ENCOUNTER 2019-03-15 09:46 | Day surgery (SDC) | payer OTHER ==
[~2019-03-15 09:46] MED LIST changes: +CEFTRIAXONE 2 GM in DEXTROSE 5%-WATER - 100 ML IVPB ONE; -CEFTRIAXONE 2 GM in DEXTROSE 5%-WATER 100 ML IVPB ONE
[2019-03-15 11:09] LABS: HEMATOCRIT 36.7 % (35.4-49); MCH 29.7 pg (25.7-33.7); MCHC 32.6 g/dl (32.0-35.9); MEAN CELL VOLUME 90.9 fl (80-96); MEAN PLT VOLUME 8.9 fl (7.5-11.1); PLATELET COUNT 199 K/MM3 (134-434); RBC 4.04 M/mm3 (4.00-5.60); RDW 14.1 % (11.9-15.9); WHITE BLOOD COUNT 5.7 K/mm3 (4.0-10.0)
[2019-03-15 12:01] LABS: BLOOD UREA NITROGEN 30.2 mg/dL (7-18); CALCIUM 8.6 mg/dL (8.5-10.1); CREATININE 1.4 mg/dL (0.55-1.3); POTASSIUM 4.5 mmol/L (3.5-5.1)
[2019-03-15 12:11] LABS: ERYTHROCYTE SEDIMENTATION RATE 60 mm/hr (0-20)
[2019-03-15] MEDS ORDERED: DEXTROSE 5%-WATER 100 ML IVPB ONE (12:47)
[2019-03-15 13:01] VITALS: TEMP 97.3
[2019-03-15 14:14] VITALS: BP 117/48; PULSE 76
== END 2019-03-15 14:08 | disposition home or self-care (01) ==
LOC: JINFUSION 09:46
PROVIDERS: ATTEND Internal Medicine Infectious Disease
PROC: 3E033GC Introduction of Other Therapeutic Substance into Peripheral Vein, Percutaneous Approach (ICD-10-PCS; principal; 2019-03-15)
DX: M86.8X7 Other osteomyelitis, ankle and foot (principal); L97.323 Non-pressure chronic ulcer of left ankle with necrosis of muscle; M86.372 Chronic multifocal osteomyelitis, left ankle and foot
CPT/HCPCS: 36415; 80048; 85027; 85651; 86140; 96365; G0277

== ENCOUNTER 2019-03-16 09:42 | Day surgery (SDC) | payer OTHER ==
[~2019-03-16 09:42] MED LIST changes: -CEFTRIAXONE 2 GM in DEXTROSE 5%-WATER - 100 ML IVPB ONE; +CEFTRIAXONE 2 GM in DEXTROSE 5%-WATER 100 ML IVPB ONE
[2019-03-16] MEDS ORDERED: DEXTROSE 5%-WATER 100 ML IVPB ONE (12:56)
[2019-03-16 13:54] VITALS: BP 115/51; PULSE 74
== END 2019-03-16 13:55 | disposition home or self-care (01) ==
LOC: JINFUSION 09:42
PROVIDERS: ATTEND Internal Medicine Infectious Disease
DX: M86.8X7 Other osteomyelitis, ankle and foot (principal); L97.323 Non-pressure chronic ulcer of left ankle with necrosis of muscle; M86.372 Chronic multifocal osteomyelitis, left ankle and foot
CPT/HCPCS: 96365; G0277

== ENCOUNTER 2019-03-17 09:50 | Day surgery (SDC) | payer OTHER ==
[2019-03-17 12:55] VITALS: TEMP 97.5
[2019-03-17 13:51] VITALS: BP 112/59; PULSE 80
== END 2019-03-17 13:30 | disposition home or self-care (01) ==
LOC: JINFUSION 09:50
PROVIDERS: ATTEND Internal Medicine Infectious Disease
DX: M86.8X7 Other osteomyelitis, ankle and foot (principal); L97.323 Non-pressure chronic ulcer of left ankle with necrosis of muscle; M86.372 Chronic multifocal osteomyelitis, left ankle and foot
CPT/HCPCS: 96365; G0277

== ENCOUNTER 2019-03-18 10:19 | Day surgery (SDC) | payer OTHER ==
[2019-03-18] MEDS ORDERED: SODIUM CHLORIDE 100 ML IVPB ONE (12:54)
[2019-03-18 13:15] VITALS: TEMP 97.8
[2019-03-18 14:03] VITALS: BP 105/48; PULSE 83
== END 2019-03-18 14:04 | disposition home or self-care (01) ==
LOC: JINFUSION 10:19
PROVIDERS: ATTEND Internal Medicine Infectious Disease
DX: M86.8X7 Other osteomyelitis, ankle and foot (principal); L97.323 Non-pressure chronic ulcer of left ankle with necrosis of muscle
CPT/HCPCS: 11042; 11045; 29581-LT; 96365; 99406; A4649; A6196; G0277

== ENCOUNTER 2019-03-19 10:12 | Day surgery (SDC) | payer OTHER ==
[2019-03-19] MEDS ORDERED: DEXTROSE 5%-WATER 100 ML IVPB ONE (10:59)
[2019-03-19] MEDS ORDERED: CEFTRIAXONE 2 GM in DEXTROSE 5%-WATER 100 ML IVPB ONE (11:00)
[2019-03-19 15:07] VITALS: BP 128/64; PULSE 78; TEMP 98.3
== END 2019-03-19 12:15 | disposition home or self-care (01) ==
LOC: J7W 10:12 → JINFUSION 10:12
PROVIDERS: ATTEND Internal Medicine Infectious Disease
DX: M86.8X7 Other osteomyelitis, ankle and foot (principal); L97.323 Non-pressure chronic ulcer of left ankle with necrosis of muscle
CPT/HCPCS: 96365

== ENCOUNTER 2019-03-20 10:03 | Day surgery (SDC) | payer OTHER ==
[2019-03-20] MEDS ORDERED: CEFTRIAXONE 2 GM in DEXTROSE 5%-WATER 100 ML IVPB ONE (10:45)
[2019-03-20] MEDS ORDERED: DEXTROSE 5%-WATER 100 ML IVPB ONE (10:54)
[2019-03-20 12:02] VITALS: BP 135/56; PULSE 81; TEMP 98.1
== END 2019-03-20 11:45 | disposition home or self-care (01) ==
LOC: J7W 10:03 → JINFUSION 10:03
PROVIDERS: ATTEND Internal Medicine Infectious Disease
DX: M86.8X7 Other osteomyelitis, ankle and foot (principal); L97.323 Non-pressure chronic ulcer of left ankle with necrosis of muscle
CPT/HCPCS: 96365

== ENCOUNTER 2019-03-21 09:39 | Day surgery (SDC) | payer OTHER ==
[2019-03-21 12:30] VITALS: PULSE 76; TEMP 96
[2019-03-21] MEDS ORDERED: CEFTRIAXONE 2 GM in DEXTROSE 5%-WATER 100 ML IVPB ONE (12:30)
[2019-03-21 19:28] VITALS: BP 116/70
== END 2019-03-21 14:00 | disposition home or self-care (01) ==
LOC: JINFUSION 09:39
PROVIDERS: ATTEND Internal Medicine Infectious Disease
DX: M86.8X7 Other osteomyelitis, ankle and foot (principal); L97.323 Non-pressure chronic ulcer of left ankle with necrosis of muscle
CPT/HCPCS: 96365; G0277

== ENCOUNTER 2019-03-22 08:41 | Day surgery (SDC) | payer OTHER ==
[2019-03-22] MEDS ORDERED: CEFTRIAXONE 2 GM in DEXTROSE 5%-WATER 100 ML IVPB ONE (11:45)
[2019-03-22 12:14] VITALS: TEMP 97
[2019-03-22 13:21] LABS: HEMATOCRIT 38.7 % (35.4-49); HEMOGLOBIN 12.6 GM/dL (11.7-16.9); LYMPH % 22.9 % (8-40); MCH 29.7 pg (25.7-33.7); MCHC 32.5 g/dl (32.0-35.9); MEAN CELL VOLUME 91.4 fl (80-96); MEAN PLT VOLUME 9.1 fl (7.5-11.1); MONO % 6.6 % (3.8-10.2); NEUT % 66.5 % (42.8-82.8); PLATELET COUNT 208 K/MM3 (134-434); RBC 4.23 M/mm3 (4.00-5.60); RDW 14.4 % (11.9-15.9); WHITE BLOOD COUNT 6.1 K/mm3 (4.0-10.0)
[2019-03-22 13:31] VITALS: BP 120/60; PULSE 80
[2019-03-22 13:54] LABS: BLOOD UREA NITROGEN 28.4 mg/dL (7-18); CALCIUM 8.9 mg/dL (8.5-10.1); CREATININE 1.2 mg/dL (0.55-1.3); POTASSIUM 4.8 mmol/L (3.5-5.1)
[2019-03-22 14:40] LABS: ERYTHROCYTE SEDIMENTATION RATE 58 mm/hr (0-20)
== END 2019-03-22 13:32 | disposition home or self-care (01) ==
LOC: JINFUSION 08:41
PROVIDERS: ATTEND Internal Medicine Infectious Disease
DX: M86.8X7 Other osteomyelitis, ankle and foot (principal); L97.323 Non-pressure chronic ulcer of left ankle with necrosis of muscle
CPT/HCPCS: 29581-LT; 36415; 80048; 85025; 85651; 86140; 96365; A4649; A6196; G0277; G0463-25

== ENCOUNTER 2019-03-23 10:09 | Day surgery (SDC) | payer OTHER ==
[2019-03-23 12:59] VITALS: TEMP 96.2
[2019-03-23] MEDS ORDERED: CEFTRIAXONE 2 GM in DEXTROSE 5%-WATER 100 ML IVPB ONE (13:00)
[2019-03-23 14:06] VITALS: BP 130/84; PULSE 80
== END 2019-03-23 14:00 | disposition home or self-care (01) ==
LOC: JINFUSION 10:09
PROVIDERS: ATTEND Internal Medicine Infectious Disease
DX: M86.8X7 Other osteomyelitis, ankle and foot (principal); L97.323 Non-pressure chronic ulcer of left ankle with necrosis of muscle; M86.372 Chronic multifocal osteomyelitis, left ankle and foot
CPT/HCPCS: 96365; G0277

== ENCOUNTER 2019-03-24 10:02 | Day surgery (SDC) | payer OTHER ==
[2019-03-24 12:56] VITALS: TEMP 98.6
[2019-03-24] MEDS ORDERED: CEFTRIAXONE 2 GM in DEXTROSE 5%-WATER 100 ML IVPB ONE (13:00)
[2019-03-24 15:09] VITALS: BP 140/70; PULSE 76
== END 2019-03-24 14:01 | disposition home or self-care (01) ==
LOC: JINFUSION 10:02
PROVIDERS: ATTEND Internal Medicine Infectious Disease
DX: M86.8X7 Other osteomyelitis, ankle and foot (principal); L97.323 Non-pressure chronic ulcer of left ankle with necrosis of muscle
CPT/HCPCS: 96365; G0277

== ENCOUNTER 2019-03-25 10:35 | Day surgery (SDC) | payer OTHER ==
[2019-03-25] MEDS ORDERED: CEFTRIAXONE 2 GM in DEXTROSE 5%-WATER 100 ML IVPB ONE (16:00)
[2019-03-25 16:10] VITALS: BP 140/80
[2019-03-25 16:24] VITALS: TEMP 98
[2019-03-25 16:47] VITALS: PULSE 80
== END 2019-03-25 16:50 | disposition home or self-care (01) ==
LOC: JINFUSION 10:35
PROVIDERS: ATTEND Internal Medicine Infectious Disease
DX: M86.8X7 Other osteomyelitis, ankle and foot (principal); L97.323 Non-pressure chronic ulcer of left ankle with necrosis of muscle; M86.372 Chronic multifocal osteomyelitis, left ankle and foot
CPT/HCPCS: 96365; G0277

== ENCOUNTER 2019-03-26 11:13 | Day surgery (SDC) | payer OTHER ==
[2019-03-26] MEDS ORDERED: CEFTRIAXONE 2 GM in DEXTROSE 5%-WATER 100 ML IVPB ONE (11:30)
[2019-03-26] MEDS ORDERED: DEXTROSE 5%-WATER 100 ML IVPB ONE (11:41)
[2019-03-26 11:53] VITALS: TEMP 97.6
[2019-03-26 12:31] VITALS: BP 128/64; PULSE 66
== END 2019-03-26 15:32 | disposition home or self-care (01) ==
LOC: J7W 11:13 → JINFUSION 11:13
PROVIDERS: ATTEND Internal Medicine Infectious Disease
DX: M86.8X7 Other osteomyelitis, ankle and foot (principal); L97.323 Non-pressure chronic ulcer of left ankle with necrosis of muscle
CPT/HCPCS: 96365

== ENCOUNTER 2019-03-27 09:59 | Day surgery (SDC) | payer OTHER ==
[2019-03-27] MEDS ORDERED: CEFTRIAXONE 2 GM in DEXTROSE 5%-WATER 100 ML IVPB ONE (10:30)
[2019-03-27] MEDS ORDERED: DEXTROSE 5%-WATER 100 ML IVPB ONE (10:30)
[2019-03-27 14:13] VITALS: BP 115/54; PULSE 76
[2019-03-27 14:14] VITALS: TEMP 98.1
== END 2019-03-27 11:30 | disposition home or self-care (01) ==
LOC: JINFUSION 09:59 → J7W 09:59 → JINFUSION 11:30
PROVIDERS: ATTEND Internal Medicine Infectious Disease
DX: M86.8X7 Other osteomyelitis, ankle and foot (principal); L97.323 Non-pressure chronic ulcer of left ankle with necrosis of muscle
CPT/HCPCS: 96365

== ENCOUNTER → 2019-03-28 | Day surgery (SDC) | payer OTHER ==
[~2019-03-28] MED LIST changes: +DEXTROSE 5%-WATER 100 ML IVPB ONE
[2019-03-28 13:17] VITALS: BP 142/62; PULSE 70; TEMP 96.3
== END | disposition home or self-care (01) ==
LOC: JINFUSION 09:39
PROVIDERS: ATTEND Internal Medicine Infectious Disease
DX: M86.8X7 Other osteomyelitis, ankle and foot (principal); L97.323 Non-pressure chronic ulcer of left ankle with necrosis of muscle; M86.372 Chronic multifocal osteomyelitis, left ankle and foot
CPT/HCPCS: 96365; G0277

== ENCOUNTER 2019-03-29 09:39 | Day surgery (SDC) | payer OTHER ==
[2019-03-29 10:21] LABS: HEMATOCRIT 37.9 % (35.4-49); HEMOGLOBIN 12.4 GM/dL (11.7-16.9); MCH 29.7 pg (25.7-33.7); MCHC 32.6 g/dl (32.0-35.9); MEAN CELL VOLUME 91.3 fl (80-96); MEAN PLT VOLUME 8.7 fl (7.5-11.1); PLATELET COUNT 179 K/MM3 (134-434); RBC 4.16 M/mm3 (4.00-5.60); RDW 15.3 % (11.9-15.9); WHITE BLOOD COUNT 5.8 K/mm3 (4.0-10.0)
[2019-03-29 10:48] LABS: BLOOD UREA NITROGEN 32.7 mg/dL (7-18); CREATININE 1.2 mg/dL (0.55-1.3); POTASSIUM 4.6 mmol/L (3.5-5.1)
[2019-03-29 11:00] LABS: ERYTHROCYTE SEDIMENTATION RATE 45 mm/hr (0-20)
[2019-03-29] MEDS ORDERED: CEFTRIAXONE 2 GM in DEXTROSE 5%-WATER 100 ML IVPB ONE (12:45)
[2019-03-29 13:00] VITALS: TEMP 98.6
[2019-03-29] MEDS ORDERED: DEXTROSE 5%-WATER 100 ML IVPB ONE (13:10)
[2019-03-29 13:46] VITALS: BP 138/60; PULSE 80
== END 2019-03-29 13:50 | disposition home or self-care (01) ==
LOC: JINFUSION 09:39
PROVIDERS: ATTEND Internal Medicine Infectious Disease
DX: M86.8X7 Other osteomyelitis, ankle and foot (principal); L97.323 Non-pressure chronic ulcer of left ankle with necrosis of muscle; M86.372 Chronic multifocal osteomyelitis, left ankle and foot
CPT/HCPCS: 29581-RT; 36415; 80048; 85027; 85651; 86140; 96365; A4649; A6196; G0277; G0463-25

== ENCOUNTER 2019-03-30 09:27 | Day surgery (SDC) | payer OTHER ==
[2019-03-30 13:10] VITALS: TEMP 97
[2019-03-30] MEDS ORDERED: CEFTRIAXONE 2 GM in DEXTROSE 5%-WATER 100 ML IVPB ONE (13:15)
[2019-03-30] MEDS ORDERED: DEXTROSE 5%-WATER 100 ML IVPB ONE (13:18)
[2019-03-30 13:59] VITALS: BP 116/60; PULSE 76
== END 2019-03-30 14:02 | disposition home or self-care (01) ==
LOC: JINFUSION 09:27
PROVIDERS: ATTEND Internal Medicine Infectious Disease
DX: M86.8X7 Other osteomyelitis, ankle and foot (principal); L97.323 Non-pressure chronic ulcer of left ankle with necrosis of muscle
CPT/HCPCS: 96365; G0277

== ENCOUNTER 2019-03-31 09:44 | Day surgery (SDC) | payer OTHER ==
[2019-03-31 13:29] VITALS: TEMP 97.8
[2019-03-31] MEDS ORDERED: CEFTRIAXONE 2 GM in DEXTROSE 5%-WATER 100 ML IVPB ONE (13:30)
[2019-03-31 13:59] VITALS: BP 120/82; PULSE 78
== END 2019-03-31 14:00 | disposition home or self-care (01) ==
LOC: JINFUSION 09:44
PROVIDERS: ATTEND Internal Medicine Infectious Disease
DX: M86.8X7 Other osteomyelitis, ankle and foot (principal); L97.323 Non-pressure chronic ulcer of left ankle with necrosis of muscle; M86.372 Chronic multifocal osteomyelitis, left ankle and foot
CPT/HCPCS: 96365; G0277

== ENCOUNTER 2019-04-01 09:59 | Day surgery (SDC) | payer OTHER ==
[2019-04-01 12:46] VITALS: TEMP 97.7
[2019-04-01 12:52] VITALS: BMI 37.3
[2019-04-01] MEDS ORDERED: DEXTROSE 5%-WATER 100 ML IVPB ONE (12:52)
[2019-04-01] MEDS ORDERED: CEFTRIAXONE 2 GM in DEXTROSE 5%-WATER 100 ML IVPB ONE (13:00)
[2019-04-01 13:33] VITALS: BP 138/70; PULSE 78
== END 2019-04-01 13:40 | disposition home or self-care (01) ==
LOC: JINFUSION 09:59
PROVIDERS: ATTEND Internal Medicine Infectious Disease
DX: M86.8X7 Other osteomyelitis, ankle and foot (principal); L97.323 Non-pressure chronic ulcer of left ankle with necrosis of muscle
CPT/HCPCS: 96365; G0277

== ENCOUNTER 2019-04-02 10:13 | Day surgery (SDC) | payer OTHER ==
[2019-04-02] MEDS ORDERED: CEFTRIAXONE 2 GM in DEXTROSE 5%-WATER 100 ML IVPB ONE (10:30)
[2019-04-02 15:09] VITALS: BP 139/70; PULSE 78; TEMP 98
== END 2019-04-02 11:35 | disposition home or self-care (01) ==
LOC: J7W 10:13 → JINFUSION 10:13
PROVIDERS: ATTEND Internal Medicine Infectious Disease
DX: M86.8X7 Other osteomyelitis, ankle and foot (principal); L97.323 Non-pressure chronic ulcer of left ankle with necrosis of muscle
CPT/HCPCS: 96365

== ENCOUNTER 2019-04-03 09:49 | Day surgery (SDC) | payer OTHER ==
[2019-04-03 10:30] VITALS: TEMP 98.1
[2019-04-03] MEDS ORDERED: DEXTROSE 5%-WATER 100 ML IVPB ONE (10:38)
[2019-04-03] MEDS ORDERED: CEFTRIAXONE 2 GM in DEXTROSE 5%-WATER 100 ML IVPB ONE (11:00)
[2019-04-03 11:36] VITALS: BP 128/65; PULSE 71
== END 2019-04-03 11:37 | disposition home or self-care (01) ==
LOC: JINFUSION 09:49 → J7W 09:50 → JINFUSION 11:37
PROVIDERS: ATTEND Internal Medicine Infectious Disease
DX: M86.8X7 Other osteomyelitis, ankle and foot (principal); L97.323 Non-pressure chronic ulcer of left ankle with necrosis of muscle
CPT/HCPCS: 96365

== ENCOUNTER 2019-04-04 09:22 | Day surgery (SDC) | payer OTHER ==
[2019-04-04] MEDS ORDERED: CEFTRIAXONE 2 GM in DEXTROSE 5%-WATER 100 ML IVPB ONE (12:15)
[2019-04-04 18:58] VITALS: BP 158/72; PULSE 78; TEMP 97.9
== END 2019-04-04 13:15 | disposition home or self-care (01) ==
LOC: JINFUSION 09:22 → J7W 09:23 → JINFUSION 13:15
PROVIDERS: ATTEND Internal Medicine Infectious Disease
DX: M86.8X7 Other osteomyelitis, ankle and foot (principal); L97.323 Non-pressure chronic ulcer of left ankle with necrosis of muscle
CPT/HCPCS: 11042; 11045; 15271; 15272; 96365; G0277; Q4196

== ENCOUNTER 2019-04-05 09:17 | Day surgery (SDC) | payer OTHER ==
[2019-04-05 10:26] LABS: HEMATOCRIT 39.8 % (35.4-49); MCH 30.2 pg (25.7-33.7); MCHC 32.8 g/dl (32.0-35.9); MEAN CELL VOLUME 92.2 fl (80-96); PLATELET COUNT 171 K/MM3 (134-434); RBC 4.32 M/mm3 (4.00-5.60); RDW 15.4 % (11.9-15.9)
[2019-04-05 10:43] LABS: CALCIUM 9.1 mg/dL (8.5-10.1); CREATININE 1.2 mg/dL (0.55-1.3); POTASSIUM 4.5 mmol/L (3.5-5.1)
[2019-04-05 12:04] LABS: ERYTHROCYTE SEDIMENTATION RATE 34 mm/hr (0-20)
[2019-04-05 12:47] VITALS: TEMP 96
[2019-04-05] MEDS ORDERED: CEFTRIAXONE 2 GM in DEXTROSE 5%-WATER 100 ML IVPB ONE (13:00)
[2019-04-05] MEDS ORDERED: DEXTROSE 5%-WATER 100 ML IVPB ONE (13:08)
[2019-04-05 13:56] VITALS: BP 138/80; PULSE 80
== END 2019-04-05 13:56 | disposition home or self-care (01) ==
LOC: JINFUSION 09:17
PROVIDERS: ATTEND Internal Medicine Infectious Disease
DX: M86.8X7 Other osteomyelitis, ankle and foot (principal); L97.323 Non-pressure chronic ulcer of left ankle with necrosis of muscle; M86.372 Chronic multifocal osteomyelitis, left ankle and foot
CPT/HCPCS: 36415; 80048; 85027; 85651; 86140; 96365; G0277

== ENCOUNTER 2019-04-06 09:32 | Day surgery (SDC) | payer OTHER ==
[2019-04-06 12:19] VITALS: PULSE 68; TEMP 97
[2019-04-06 12:21] VITALS: BP 120/70
[2019-04-06] MEDS ORDERED: DEXTROSE 5%-WATER 100 ML IVPB ONE (12:26)
[2019-04-06] MEDS ORDERED: CEFTRIAXONE 2 GM in DEXTROSE 5%-WATER 100 ML IVPB ONE (12:30)
== END 2019-04-06 13:19 | disposition home or self-care (01) ==
LOC: JINFUSION 09:32
PROVIDERS: ATTEND Internal Medicine Infectious Disease
DX: M86.8X7 Other osteomyelitis, ankle and foot (principal); L97.323 Non-pressure chronic ulcer of left ankle with necrosis of muscle
CPT/HCPCS: 96365; G0277

== ENCOUNTER → 2019-04-07 | Day surgery (SDC) | payer OTHER ==
[2019-04-07 12:06] VITALS: TEMP 97.2
[2019-04-07 12:55] VITALS: BP 124/64; PULSE 72
== END | disposition home or self-care (01) ==
LOC: JINFUSION 05:45
PROVIDERS: ATTEND Internal Medicine Infectious Disease
DX: M86.8X7 Other osteomyelitis, ankle and foot (principal); L97.323 Non-pressure chronic ulcer of left ankle with necrosis of muscle
CPT/HCPCS: 96365; G0277

== ENCOUNTER 2019-04-08 05:27 | Day surgery (SDC) | payer OTHER ==
[~2019-04-08 05:27] MED LIST changes: -DEXTROSE 5%-WATER 100 ML IVPB ONE
[2019-04-08 13:44] VITALS: BP 112/60; PULSE 68; TEMP 97
[2019-04-08] MEDS ORDERED: CEFTRIAXONE 2 GM in DEXTROSE 5%-WATER 100 ML IVPB ONE (13:45)
[2019-04-08] MEDS ORDERED: DEXTROSE 5%-WATER 100 ML IVPB ONE (13:47)
== END 2019-04-08 14:35 | disposition home or self-care (01) ==
LOC: JINFUSION 05:27
PROVIDERS: ATTEND Internal Medicine Infectious Disease
DX: M86.8X7 Other osteomyelitis, ankle and foot (principal); L97.323 Non-pressure chronic ulcer of left ankle with necrosis of muscle; M86.372 Chronic multifocal osteomyelitis, left ankle and foot
CPT/HCPCS: 96365; G0277

== ENCOUNTER 2019-04-09 10:11 | Day surgery (SDC) | payer OTHER ==
[2019-04-09] MEDS ORDERED: DEXTROSE 5%-WATER 100 ML IVPB ONE (10:38)
[2019-04-09] MEDS ORDERED: CEFTRIAXONE 2 GM in DEXTROSE 5%-WATER 100 ML IVPB ONE (10:45)
[2019-04-09 11:33] VITALS: BP 118/64; PULSE 81; TEMP 97.7
== END 2019-04-09 11:35 | disposition home or self-care (01) ==
LOC: JINFUSION 10:11 → J7W 10:12 → JINFUSION 11:35
PROVIDERS: ATTEND Internal Medicine Infectious Disease
DX: M86.8X7 Other osteomyelitis, ankle and foot (principal); L97.323 Non-pressure chronic ulcer of left ankle with necrosis of muscle
CPT/HCPCS: 96365

== ENCOUNTER 2019-04-10 09:51 | Day surgery (SDC) | payer OTHER ==
[2019-04-10] MEDS ORDERED: CEFTRIAXONE 2 GM in DEXTROSE 5%-WATER 100 ML IVPB ONE (10:30)
[2019-04-10] MEDS ORDERED: DEXTROSE 5%-WATER 100 ML IVPB ONE (10:33)
== END 2019-04-10 11:30 | disposition home or self-care (01) ==
LOC: JINFUSION 09:51 → J7W 09:51 → JINFUSION 11:30
PROVIDERS: ATTEND Internal Medicine Infectious Disease
DX: M86.8X7 Other osteomyelitis, ankle and foot (principal); L97.323 Non-pressure chronic ulcer of left ankle with necrosis of muscle
CPT/HCPCS: 96365

== ENCOUNTER 2019-04-11 05:26 | Day surgery (SDC) | payer OTHER ==
[2019-04-11 13:33] VITALS: TEMP 97.1
[2019-04-11] MEDS ORDERED: DEXTROSE 5%-WATER 100 ML IVPB ONE (13:45)
[2019-04-11] MEDS ORDERED: CEFTRIAXONE 2 GM in DEXTROSE 5%-WATER 100 ML IVPB ONE (13:45)
[2019-04-11 14:27] VITALS: BP 112/60; PULSE 78
== END 2019-04-11 14:30 | disposition home or self-care (01) ==
LOC: JINFUSION 05:26
PROVIDERS: ATTEND Internal Medicine Infectious Disease
DX: M86.8X7 Other osteomyelitis, ankle and foot (principal); L97.323 Non-pressure chronic ulcer of left ankle with necrosis of muscle; M86.372 Chronic multifocal osteomyelitis, left ankle and foot; F17.210 Nicotine dependence, cigarettes, uncomplicated; I73.9 Peripheral vascular disease, unspecified; M25.475 Effusion, left foot; M25.572 Pain in left ankle and joints of left foot
CPT/HCPCS: 11042; 11045; 29581-LT; 76881-LT; 87070; 87077; 87186; 87205; 93922; 96365; 99406; A6196; G0277

== ENCOUNTER 2019-04-12 05:08 | Day surgery (SDC) | payer OTHER ==
[2019-04-12 09:50] LABS: HEMATOCRIT 38.7 % (35.4-49); HEMOGLOBIN 12.5 GM/dL (11.7-16.9); MCH 29.8 pg (25.7-33.7); MCHC 32.4 g/dl (32.0-35.9); MEAN CELL VOLUME 91.8 fl (80-96); MEAN PLT VOLUME 8.7 fl (7.5-11.1); PLATELET COUNT 179 K/MM3 (134-434); RBC 4.21 M/mm3 (4.00-5.60); RDW 15.8 % (11.9-15.9); WHITE BLOOD COUNT 5.5 K/mm3 (4.0-10.0)
[2019-04-12 10:15] LABS: BLOOD UREA NITROGEN 30.2 mg/dL (7-18); CALCIUM 8.7 mg/dL (8.5-10.1); CREATININE 1.2 mg/dL (0.55-1.3); POTASSIUM 4.4 mmol/L (3.5-5.1)
[2019-04-12 10:56] LABS: ERYTHROCYTE SEDIMENTATION RATE 83 mm/hr (0-20)
[2019-04-12] MEDS ORDERED: CEFTRIAXONE 2 GM in DEXTROSE 5%-WATER 100 ML IVPB ONE (12:45)
[2019-04-12 13:05] VITALS: PULSE 80; TEMP 97.8
[2019-04-12] MEDS ORDERED: DEXTROSE 5%-WATER 100 ML IVPB ONE (13:08)
[2019-04-12 13:46] VITALS: BP 120/70
== END 2019-04-12 13:46 | disposition home or self-care (01) ==
LOC: JINFUSION 05:08
PROVIDERS: ATTEND Internal Medicine Infectious Disease
DX: M86.8X7 Other osteomyelitis, ankle and foot (principal); L97.323 Non-pressure chronic ulcer of left ankle with necrosis of muscle
CPT/HCPCS: 11042; 15271; 15272; 36415; 80048; 85027; 85651; 86140; 96365; G0277; Q4196

== ENCOUNTER 2019-04-13 05:14 | Day surgery (SDC) | payer OTHER ==
[2019-04-13 12:42] VITALS: TEMP 97
[2019-04-13] MEDS ORDERED: CEFTRIAXONE 2 GM in DEXTROSE 5%-WATER 100 ML IVPB ONE (12:45)
[2019-04-13] MEDS ORDERED: DEXTROSE 5%-WATER 100 ML IVPB ONE (12:49)
[2019-04-13 13:47] VITALS: BP 120/70; PULSE 80
[2019-04-19 10:35] LABS: HEMATOCRIT 39.8 % (35.4-49); MCH 29.9 pg (25.7-33.7); MCHC 32.7 g/dl (32.0-35.9); MEAN CELL VOLUME 91.6 fl (80-96); MEAN PLT VOLUME 8.7 fl (7.5-11.1); PLATELET COUNT 175 K/MM3 (134-434); RBC 4.35 M/mm3 (4.00-5.60); RDW 15.4 % (11.9-15.9); WHITE BLOOD COUNT 5.2 K/mm3 (4.0-10.0)
[2019-04-19 11:05] LABS: BLOOD UREA NITROGEN 27.7 mg/dL (7-18); CALCIUM 8.4 mg/dL (8.5-10.1); CREATININE 1.2 mg/dL (0.55-1.3); POTASSIUM 4.7 mmol/L (3.5-5.1)
[2019-04-19 11:41] LABS: ERYTHROCYTE SEDIMENTATION RATE 41 mm/hr (0-20)
== END 2019-04-13 13:40 | disposition home or self-care (01) ==
LOC: JINFUSION 05:14
PROVIDERS: ATTEND Internal Medicine Infectious Disease
DX: M86.8X7 Other osteomyelitis, ankle and foot (principal); L97.323 Non-pressure chronic ulcer of left ankle with necrosis of muscle; M86.372 Chronic multifocal osteomyelitis, left ankle and foot
CPT/HCPCS: 36415; 80048; 85027; 85651; 86140; 96365; G0277

== ENCOUNTER 2019-04-14 09:46 | Day surgery (SDC) | payer OTHER ==
[2019-04-14 14:34] VITALS: PULSE 80; TEMP 97
[2019-04-14] MEDS ORDERED: DEXTROSE 5%-WATER 100 ML IVPB ONE (14:39)
[2019-04-14] MEDS ORDERED: CEFTRIAXONE 2 GM in DEXTROSE 5%-WATER 100 ML IVPB ONE (14:45)
[2019-04-14 15:09] VITALS: BP 130/70
== END 2019-04-14 15:09 | disposition home or self-care (01) ==
LOC: JINFUSION 09:46
PROVIDERS: ATTEND Internal Medicine Infectious Disease
DX: M86.8X7 Other osteomyelitis, ankle and foot (principal); L97.323 Non-pressure chronic ulcer of left ankle with necrosis of muscle
CPT/HCPCS: 96365; G0277

== ENCOUNTER 2019-04-15 05:21 | Day surgery (SDC) | payer OTHER ==
[2019-04-15] MEDS ORDERED: CEFTRIAXONE 2 GM in DEXTROSE 5%-WATER 100 ML IVPB ONE (12:45)
[2019-04-15] MEDS ORDERED: DEXTROSE 5%-WATER 100 ML IVPB ONE (12:57)
[2019-04-15 13:06] VITALS: BP 110/60; PULSE 80; TEMP 97.6; BMI 37.3
== END 2019-04-15 13:35 | disposition home or self-care (01) ==
LOC: JASU-SURG 05:21 → JINFUSION 05:21
PROVIDERS: ATTEND Internal Medicine Infectious Disease
DX: M86.8X7 Other osteomyelitis, ankle and foot (principal); L97.323 Non-pressure chronic ulcer of left ankle with necrosis of muscle; M86.372 Chronic multifocal osteomyelitis, left ankle and foot
CPT/HCPCS: 29581-LT; 96365; A6196; G0277; G0463-25

== ENCOUNTER 2019-04-16 06:28 | Day surgery (SDC) | payer OTHER ==
[2019-04-16] MEDS ORDERED: DEXTROSE 5%-WATER 100 ML IVPB ONE (10:13)
[2019-04-16] MEDS ORDERED: CEFTRIAXONE 2 GM in DEXTROSE 5%-WATER 100 ML IVPB ONE (10:15)
[2019-04-16 10:28] VITALS: TEMP 97.9
[2019-04-16 11:15] VITALS: BP 110/53; PULSE 75
== END 2019-04-16 11:00 | disposition home or self-care (01) ==
LOC: JINFUSION 06:28 → J7W 06:29 → JINFUSION 11:00
PROVIDERS: ATTEND Internal Medicine Infectious Disease
DX: M86.8X7 Other osteomyelitis, ankle and foot (principal); L97.323 Non-pressure chronic ulcer of left ankle with necrosis of muscle
CPT/HCPCS: 96365

== ENCOUNTER 2019-04-17 10:06 | Day surgery (SDC) | payer OTHER ==
[2019-04-17] MEDS ORDERED: CEFTRIAXONE 2 GM in DEXTROSE 5%-WATER 100 ML IVPB ONE (10:30)
[2019-04-17] MEDS ORDERED: DEXTROSE 5%-WATER 100 ML IVPB ONE (10:31)
[2019-04-17 13:17] VITALS: TEMP 97.9
[2019-04-17 13:33] VITALS: BP 120/62; PULSE 66
== END 2019-04-17 11:15 | disposition home or self-care (01) ==
LOC: JINFUSION 10:06 → J7W 10:11 → JINFUSION 11:15
PROVIDERS: ATTEND Internal Medicine Infectious Disease
DX: M86.8X7 Other osteomyelitis, ankle and foot (principal); L97.323 Non-pressure chronic ulcer of left ankle with necrosis of muscle
CPT/HCPCS: 96365

== ENCOUNTER 2019-04-18 05:18 | Day surgery (SDC) | payer OTHER ==
[2019-04-18 12:15] VITALS: BP 124/76; PULSE 72; TEMP 97.7
[2019-04-18] MEDS ORDERED: CEFTRIAXONE 2 GM in DEXTROSE 5%-WATER 100 ML IVPB ONE (12:30)
[2019-04-18] MEDS ORDERED: DEXTROSE 5%-WATER 100 ML IVPB ONE (12:32)
== END 2019-04-18 13:30 | disposition home or self-care (01) ==
LOC: JINFUSION 05:18
PROVIDERS: ATTEND Internal Medicine Infectious Disease
DX: M86.8X7 Other osteomyelitis, ankle and foot (principal); L97.323 Non-pressure chronic ulcer of left ankle with necrosis of muscle
CPT/HCPCS: 11042; 11045; 15275; 29581-LT; 96365; A4649; G0277; Q4196

== ENCOUNTER 2019-04-19 05:12 | Day surgery (SDC) | payer OTHER ==
[2019-04-19 12:16] VITALS: TEMP 96
[2019-04-19] MEDS ORDERED: cefTRIAXone 2 GM/100 ML BAG (PRE-DOCKED) IVPB ONE (12:30)
[2019-04-19] MEDS ORDERED: DEXTROSE 5%-WATER 100 ML IVPB ONE (12:41)
[2019-04-19] MEDS ORDERED: CEFTRIAXONE 2 GM in DEXTROSE 5%-WATER 100 ML IVPB ONE (12:45)
[2019-04-19 13:48] VITALS: BP 120/70; PULSE 80
== END 2019-04-19 13:49 | disposition home or self-care (01) ==
LOC: JINFUSION 05:12
PROVIDERS: ATTEND Internal Medicine Infectious Disease
DX: M86.8X7 Other osteomyelitis, ankle and foot (principal); L97.323 Non-pressure chronic ulcer of left ankle with necrosis of muscle
CPT/HCPCS: 96365; G0277

== ENCOUNTER 2019-04-20 05:18 | Day surgery (SDC) | payer OTHER ==
[2019-04-20] MEDS ORDERED: CEFTRIAXONE 2 GM in DEXTROSE 5%-WATER 100 ML IVPB ONE (12:30)
[2019-04-20] MEDS ORDERED: DEXTROSE 5%-WATER 100 ML IVPB ONE (12:52)
[2019-04-20 13:11] VITALS: TEMP 97.8
[2019-04-20 13:35] VITALS: BP 120/70; PULSE 88
== END 2019-04-20 13:35 | disposition home or self-care (01) ==
LOC: JINFUSION 05:18
PROVIDERS: ATTEND Internal Medicine Infectious Disease
DX: M86.8X7 Other osteomyelitis, ankle and foot (principal); L97.323 Non-pressure chronic ulcer of left ankle with necrosis of muscle
CPT/HCPCS: 96365; G0277; G0463-25

== ENCOUNTER 2019-04-21 07:25 | Day surgery (SDC) | payer OTHER ==
[2019-04-21 12:59] VITALS: TEMP 97
[2019-04-21] MEDS ORDERED: CEFTRIAXONE 2 GM in DEXTROSE 5%-WATER 100 ML IVPB ONE (13:00)
[2019-04-21] MEDS ORDERED: DEXTROSE 5%-WATER 100 ML IVPB ONE (13:03)
[2019-04-21 13:45] VITALS: BP 130/60; PULSE 80
== END 2019-04-21 13:43 | disposition home or self-care (01) ==
LOC: JINFUSION 07:25
PROVIDERS: ATTEND Internal Medicine Infectious Disease
DX: M86.8X7 Other osteomyelitis, ankle and foot (principal); L97.323 Non-pressure chronic ulcer of left ankle with necrosis of muscle; M86.34 Chronic multifocal osteomyelitis, hand
CPT/HCPCS: 96365; 96366; G0277

== ENCOUNTER 2019-04-22 05:09 | Day surgery (SDC) | payer OTHER ==
[2019-04-22 12:29] VITALS: PULSE 80; TEMP 97
[2019-04-22] MEDS ORDERED: DEXTROSE 5%-WATER 100 ML IVPB ONE (12:37)
[2019-04-22] MEDS ORDERED: CEFTRIAXONE 2 GM in DEXTROSE 5%-WATER 100 ML IVPB ONE (12:45)
[2019-04-22 13:11] VITALS: BP 110/70
== END 2019-04-22 13:11 | disposition home or self-care (01) ==
LOC: JINFUSION 05:09
PROVIDERS: ATTEND Internal Medicine Infectious Disease
DX: M86.8X7 Other osteomyelitis, ankle and foot (principal); L97.323 Non-pressure chronic ulcer of left ankle with necrosis of muscle; M86.372 Chronic multifocal osteomyelitis, left ankle and foot
CPT/HCPCS: 29581-LT; 96365; G0277; G0463-25

== ENCOUNTER 2019-04-23 10:16 | Day surgery (SDC) | payer OTHER ==
[2019-04-23] MEDS ORDERED: CEFTRIAXONE 2 GM in DEXTROSE 5%-WATER 100 ML IVPB ONE (11:00)
[2019-04-23] MEDS ORDERED: DEXTROSE 5%-WATER 100 ML IVPB ONE (11:02)
[2019-04-23 12:31] VITALS: BP 120/67; PULSE 76; TEMP 98
== END 2019-04-23 12:31 | disposition home or self-care (01) ==
LOC: J7W 10:16 → JINFUSION 10:16
PROVIDERS: ATTEND Internal Medicine Infectious Disease
DX: M86.8X7 Other osteomyelitis, ankle and foot (principal); L97.323 Non-pressure chronic ulcer of left ankle with necrosis of muscle
CPT/HCPCS: 96365

== ENCOUNTER 2019-04-24 10:11 | Day surgery (SDC) | payer OTHER ==
[2019-04-24] MEDS ORDERED: CEFTRIAXONE 2 GM in DEXTROSE 5%-WATER 100 ML IVPB ONE (10:45)
[2019-04-24] MEDS ORDERED: DEXTROSE 5%-WATER 100 ML IVPB ONE (10:52)
[2019-04-24 11:02] VITALS: BP 103/53; PULSE 76; TEMP 97.7
== END 2019-04-24 11:40 | disposition home or self-care (01) ==
LOC: JINFUSION 10:11 → J7W 10:11 → JINFUSION 11:40
PROVIDERS: ATTEND Internal Medicine Infectious Disease
DX: M86.8X7 Other osteomyelitis, ankle and foot (principal); L97.323 Non-pressure chronic ulcer of left ankle with necrosis of muscle
CPT/HCPCS: 96365

== ENCOUNTER 2019-04-25 09:33 | Day surgery (SDC) | payer OTHER ==
[2019-04-25] MEDS ORDERED: CEFTRIAXONE 2 GM in DEXTROSE 5%-WATER 100 ML IVPB ONE (12:45)
[2019-04-25] MEDS ORDERED: DEXTROSE 5%-WATER 100 ML IVPB ONE (13:05)
[2019-04-25 13:28] VITALS: BP 130/60; PULSE 80; TEMP 98
== END 2019-04-25 14:00 | disposition home or self-care (01) ==
LOC: JINFUSION 09:33
PROVIDERS: ATTEND Internal Medicine Infectious Disease
DX: M86.8X7 Other osteomyelitis, ankle and foot (principal); L97.323 Non-pressure chronic ulcer of left ankle with necrosis of muscle; M86.372 Chronic multifocal osteomyelitis, left ankle and foot
CPT/HCPCS: 11042; 11045; 15271; 15272; 29581-LT; 96365; 99406; G0277; Q4196

== ENCOUNTER 2019-04-26 09:50 | Day surgery (SDC) | payer OTHER ==
[2019-04-26 10:22] LABS: HEMATOCRIT 38.6 % (35.4-49); HEMOGLOBIN 12.7 GM/dL (11.7-16.9); MEAN CELL VOLUME 90.9 fl (80-96); PLATELET COUNT 157 K/MM3 (134-434); RBC 4.25 M/mm3 (4.00-5.60); RDW 15.6 % (11.9-15.9); WHITE BLOOD COUNT 5.5 K/mm3 (4.0-10.0)
[2019-04-26 10:48] LABS: ALBUMIN 3.1 g/dl (3.4-5.0); BILIRUBIN,TOTAL 0.4 mg/dL (0.2-1); BLOOD UREA NITROGEN 38.6 mg/dL (7-18); CALCIUM 8.9 mg/dL (8.5-10.1); CREATININE 1.4 mg/dL (0.55-1.3); POTASSIUM 4.7 mmol/L (3.5-5.1); TOT PROT 6.5 g/dl (6.4-8.2)
[2019-04-26 11:20] LABS: ERYTHROCYTE SEDIMENTATION RATE 27 mm/hr (0-20)
[2019-04-26 12:55] VITALS: TEMP 97.8
[2019-04-26] MEDS ORDERED: DEXTROSE 5%-WATER 100 ML IVPB ONE (12:59)
[2019-04-26] MEDS ORDERED: CEFTRIAXONE 2 GM in DEXTROSE 5%-WATER 100 ML IVPB ONE (13:00)
[2019-04-26 13:48] VITALS: BP 124/70; PULSE 82
== END 2019-04-26 13:51 | disposition home or self-care (01) ==
LOC: JINFUSION 09:50
PROVIDERS: ATTEND Internal Medicine Infectious Disease
DX: M86.8X7 Other osteomyelitis, ankle and foot (principal); L97.323 Non-pressure chronic ulcer of left ankle with necrosis of muscle; M86.372 Chronic multifocal osteomyelitis, left ankle and foot
CPT/HCPCS: 36415; 80053; 85027; 85651; 86140; 96365; G0277

== ENCOUNTER 2019-04-27 05:48 | Day surgery (SDC) | payer OTHER ==
[2019-04-27 12:36] VITALS: TEMP 96.5
[2019-04-27] MEDS ORDERED: DEXTROSE 5%-WATER 100 ML IVPB ONE (12:42)
[2019-04-27] MEDS ORDERED: CEFTRIAXONE 2 GM in DEXTROSE 5%-WATER 100 ML IVPB ONE (12:45)
[2019-04-27 13:26] VITALS: BP 118/70; PULSE 74
== END 2019-04-27 13:26 | disposition home or self-care (01) ==
LOC: JINFUSION 05:48
PROVIDERS: ATTEND Internal Medicine Infectious Disease
DX: M86.8X7 Other osteomyelitis, ankle and foot (principal); L97.323 Non-pressure chronic ulcer of left ankle with necrosis of muscle; M86.372 Chronic multifocal osteomyelitis, left ankle and foot
CPT/HCPCS: 29581-LT; 96365; G0277; G0463-25

== ENCOUNTER 2019-04-28 05:14 | Day surgery (SDC) | payer OTHER ==
[2019-04-28 12:25] VITALS: BP 122/70; PULSE 78; TEMP 97.4
[2019-04-28] MEDS ORDERED: CEFTRIAXONE 2 GM in DEXTROSE 5%-WATER 100 ML IVPB ONE (12:30)
[2019-04-28] MEDS ORDERED: DEXTROSE 5%-WATER 100 ML IVPB ONE (12:32)
== END 2019-04-28 13:16 | disposition home or self-care (01) ==
LOC: JINFUSION 05:14
PROVIDERS: ATTEND Internal Medicine Infectious Disease
DX: M86.8X7 Other osteomyelitis, ankle and foot (principal); L97.323 Non-pressure chronic ulcer of left ankle with necrosis of muscle
CPT/HCPCS: 96365; G0277

== ENCOUNTER 2019-10-08 15:02 | Inpatient (IN) | payer OTHER ==
--- NOTE | 2019-10-08 15:17 | PDOC ---
History of Present Illness - History of Present Illness Initial Comments: 79 YOM h/o venous stasis presents after two unwitnessed falls this afternoon and this AM. Per patient he was making coffee this AM when his knee buckled, he fell backwards and hit his head on a door. He did not lose consciousness. EMS was called and the patient was helped to his feet but refused to go to the hospital. Later in the afternoon the patient was leaving the bathroom when his knee buckled again and he fell forward onto the floor. He did not lose consciousness or hit his head during this episode. EMS was called a second time and while helping him out of his house, his arm scraped against the corner of a counter which cut his skin. He otherwise denies CP, SOB, N/V/D, fever, chills. <Arturo Hopper - Last Filed: 10/08/19 18:23> <Arabella Valentin - Last Filed: 10/10/19 10:51> - General Chief Complaint: Injury Stated Complaint: FALL Time Seen by Provider: 10/08/19 15:17 Past History - Medical History Anemia: No Asthma: No Cancer: No Cardiac Disorders: No CVA: No COPD: No CHF: No Dementia: No Diabetes: No GI Disorders: No Disorders: No HTN: No (patient denies) Hypercholesterolemia: No (patient denies) Liver Disease: No Seizures: No Thyroid Disease: No - Surgical History Abdominal Surgery: No Appendectomy: Yes (at 15 years old) Cardiac Surgery: No Cholecystectomy: No Lung Surgery: No Neurologic Surgery: No Orthopedic Surgery: No - Psycho-Social/Smoking History Smoking History: Current every day smoker Have you smoked in the past 12 months: Yes Number of Cigarettes Smoked Daily: 10 Cigars Per Day: 0 'Breaking Loose' booklet given: 04/01/19 <Arturo Hopper - Last Filed: 10/08/19 18:23> <Arabella Valentin - Last Filed: 10/10/19 10:51> - Medical History Allergies/Adverse Reactions: Allergies Allergy/AdvReac Type Severity Reaction Status Date / Time No Known Allergies Allergy Verified 09/16/19 10:41 Home Medications: Ambulatory Orders Beta-Carotene(A) W-C and E/Min [Ocuvite (Nf) -] 1 tab PO BID 09/16/19 Review of Systems - Review of Systems Constitutional: Yes: See HPI HEENTM: Yes: See HPI Respiratory: Yes: See HPI Cardiac (ROS): Yes: See HPI ABD/GI: Yes: See HPI : Yes: See HPI Musculoskeletal: Yes: See HPI Integumentary: Yes: See HPI Neurological: Yes: See HPI Endocrine: Yes: See HPI Hematologic/Lymphatic: Yes: See HPI <Arturo Hopper - Last Filed: 10/08/19 18:23> *Physical Exam - Physical Exam General Appearance: Yes: Nourished, Appropriately Dressed HEENT: positive: EOMI, WILMA, Normal ENT Inspection, Normal Voice Neck: positive: Trachea midline, Normal Thyroid Respiratory/Chest: positive: Lungs Clear, Normal Breath Sounds Cardiovascular: positive: Regular Rhythm, Regular Rate, S1, S2 Gastrointestinal/Abdominal: positive: Normal Bowel Sounds, Flat, Soft Musculoskeletal: positive: Normal Inspection, CVA Tenderness Extremity: positive: Other (on dorusum of right arm patient has 3, 2-3 cm superficial lacerations) <Arturo Hopper - Last Filed: 10/08/19 18:23> - Vital Signs Last Vital Signs Temp Pulse Resp BP Pulse Ox 99.8 F H 71 20 108/49 L 98 10/10/19 05:00 10/10/19 05:00 10/10/19 05:00 10/10/19 05:00 10/10/19 05:00 <Arabella Valentin - Last Filed: 10/10/19 10:51> ED Treatment Course - LABORATORY CBC & Chemistry Diagram: 10/08/19 16:32 10/08/19 16:32 <Arturo Hopper - Last Filed: 10/08/19 18:23> - LABORATORY CBC & Chemistry Diagram: 10/10/19 07:44 10/10/19 07:44 - ADDITIONAL ORDERS Additional order review: 10/08/19 16:32 RBC 4.84 MCV 92.2 MCHC 33.6 RDW 14.2 MPV 9.3 Neutrophils % 80.4 D Lymphocytes % 13.6 D Monocytes % 5.5 Eosinophils % 0.0 D Basophils % 0.5 - Medications Given in the ED: ED Medications Discontinued Medications Generic Name Dose Route Start Last Admin Trade Name Freq PRN Reason Stop Dose Admin Acetaminophen 975 mg 10/08/19 16:25 10/08/19 16:35 Tylenol - PO 10/08/19 16:26 975 mg ONCE ONE Administration Diphtheria/Tetanus/Acell Pertussis 0.5 ml 10/08/19 15:59 10/08/19 16:30 Boostrix - IM 10/08/19 16:00 0.5 ml .ONCE ONE Administration Sodium Chloride 1,000 mls @ 75 mls/hr 10/08/19 22:45 10/08/19 23:59 Normal Saline - IV 75 mls/hr ASDIR MICHOACANO Administration Vancomycin HCl 1,500 mg/ 500 mls @ 250 mls/hr 10/09/19 09:22 10/09/19 13:45 Dextrose IVPB 10/09/19 11:21 250 mls/hr ONCE ONE Administration Protocol Piperacillin Sod/Tazobactam 100 mls @ 200 mls/hr 10/09/19 09:22 10/09/19 11:45 Sod 4.5 gm/ Dextrose IVPB 10/09/19 09:51 200 mls/hr ONCE ONE Administration Protocol Sodium Chloride 1,000 mls @ 75 mls/hr 10/09/19 09:36 10/09/19 11:46 Normal Saline - IV 10/09/19 21:35 75 mls/hr ASDIR MICHOACANO Administration <Arabella Valentin - Last Filed: 10/10/19 10:51> Medical Decision Making - Medical Decision Making 79 YOM h/o venous stasis presents after two unwitnessed falls this afternoon and this AM. Per patient he was making coffee this AM when his knee buckled, he fell backwards and hit his head on a door. He did not lose consciousness. EMS was called and the patient was helped to his feet but refused to go to the hospital. Later in the afternoon the patient was leaving the bathroom when his knee buckled again and he fell forward onto the floor. He did not lose consciousness or hit his head during this episode. EMS was called a second time and while helping him out of his house, his arm scraped against the corner of a counter which cut his skin. He otherwise denies CP, SOB, N/V/D, fever, chills. Vitals were wnl on arrival, physical exam revealing of 3 2-3 cm superficial lacerations on dorsum of R forearm. ddx: mechanical fall, syncope, TIA plan: CT head and neck, CBC, CMP, EKG, cardiac profile. reassess: labs and imagining wnl, patient and family complain that he is unable to ambulate and care for himself as a result. Will admit patient to medicine for placement in rehab. dispo: admit to medicine. <Arturo Hopper - Last Filed: 10/08/19 18:23> Discharge - Discharge Information Problems reviewed: Yes <Arturo Hopper - Last Filed: 10/08/19 18:23> - Discharge Information Problems reviewed: Yes - Admission Yes <Arabella Valentin - Last Filed: 10/10/19 10:51> - Discharge Information Clinical Impression/Diagnosis: Closed head injury, Skin tear, Falls frequently Condition: Stable
--- NOTE | 2019-10-08 15:27 | PDOC ---
Attending Attestation - Resident Resident Name: WardArturo - ED Attending Attestation I have performed the following: I have examined & evaluated the patient, The case was reviewed & discussed with the resident, I agree w/resident's findings & plan - HPI HPI: 10/08/19 15:58 79 YOM with h/o venous stasis, LE wounds, presenting with mechanical trip and fall after his knees buckled and he hit his head against wood door. no LOC no other complaints has right forearm skin tear 2/2 EMS transferring him to stretcher. tdap is unknown no anticoagulant or medication use concerned he is not safe to walk and is at fall risk. 10/08/19 16:25 10/08/19 16:27 10/08/19 16:43 - Physicial Exam PE: 10/08/19 15:26 Physical exam: General: GCS 15 - NAD, well appearing HEENT: NCAT, PERRL, EOMI. Airway intact. No battles sign or raccoon eyes. No e/o ocular. Dentition intact. No e/o septal hematoma, nasal bridge stable. Neck: neck supple, no midline C spine tenderness or deformity, ROM intact. No anterior mass or crepitus, trachea midline. Resp: Lungs clear bilaterally Chest: no clavicle or chest wall tenderness or crepitus CVS: RRR, 2+ pulses throughout. Abdomen: Abdomen soft, nontender, nondistended. Back: Back nontender, no midline spinal tenderness along cervical/thoracic/lumbar spine, FROM, no stepoffs. MSK: Pelvis stable, Extremities symmetric, no focal areas of tenderness or deformities, proximal and distally; no pain on axial loading. FROM in all extrem. Neuro: Alert, oriented appropriately. CN II-XII grossly symmetric and intact. no focal neuro deficits. Sensation and strength intact throughout. Gait normal/stable. Extrem: b/l venous stasis and edema. nontender, no calf tenderness Skin: intact, normal color and well perfused. +right forearm skin tear with mild ecchymosis 10/08/19 15:57 10/08/19 15:58 10/08/19 16:27 - Medical Decision Making 10/08/19 15:26 Vital Signs Temp Pulse Resp BP Pulse Ox 96.5 F L 78 19 145/82 100 10/08/19 15:02 10/08/19 15:02 10/08/19 15:02 10/08/19 15:02 10/08/19 15:02 vitals wnl, reassuring ddx: ICH, SDH/ EDH, skull fx, C spine injury/strain, extremity sprain/fracture, pelvis fracture. MSK contusion, msk spasms. Rib fractures. Clinically doubt Intra abdominal and thoracic injuries/bleed tdap, skin tear wound dressed, bacitracin, bandage CT head and c spine neg for acute pathology s/o pending labs/ reeval and ultimate dispo anticipate admission as he is unsafe for discharge, falling risk 10/08/19 15:59 10/08/19 16:13 10/10/19 10:52 Heart Score/ECG Review #1 ECG reviewed & interpreted by me at: 16:00 General ECG Interpretation: Sinus Rhythm, Normal Rate, Normal Intervals 10/08/19 16:10 EKG normal sinus rhythm 76 beats per min, no interval abnormalities, narrow QRS, ST and T wave segments and morphology normal. Nonspecific T wave abnormalities Discharge - Discharge Information Problems reviewed: Yes Clinical Impression/Diagnosis: Closed head injury, Skin tear, Falls frequently Condition: Stable - Admission Yes - Follow up/Referral - Patient Discharge Instructions - Post Discharge Activity
[2019-10-08] MEDS ORDERED: DIPHTH,PERTUSS(ACELL),TET 0.5 ML DISP.SYRIN IM ONE ×2 (15:59→16:28)
[2019-10-08] MEDS ORDERED: ACETAMINOPHEN 325 MG TABLET (FP) PO ONE (16:25)
[2019-10-08] MEDS ORDERED: ACETAMINOPHEN 325 MG TABLET (FP) ONE ×2 (16:27→16:29)
[2019-10-08 16:44] LABS: BASO % 0.5 % (0-2.0); HEMATOCRIT 44.7 % (35.4-49); LYMPH % 13.6 % (8-40); MCHC 33.6 g/dl (32.0-35.9); MEAN CELL VOLUME 92.2 fl (80-96); MEAN PLT VOLUME 9.3 fl (7.5-11.1); MONO % 5.5 % (3.8-10.2); NEUT % 80.4 % (42.8-82.8); PLATELET COUNT 129 K/MM3 (134-434); RBC 4.84 M/mm3 (4.00-5.60); RDW 14.2 % (11.9-15.9); WHITE BLOOD COUNT 7.7 K/mm3 (4.0-10.0)
[2019-10-08 16:53] LABS: INR 1.13 (0.83-1.09); PROTHROMBIN TIME (PATIENT) 13.4 SEC (9.7-13.0)
[2019-10-08 16:56] LABS: ACTIVATED PTT 28.2 SECONDS (25.2-36.5)
[2019-10-08 17:12] LABS: ALBUMIN 3.5 g/dl (3.4-5.0); BILIRUBIN,TOTAL 0.7 mg/dL (0.2-1); CALCIUM 8.6 mg/dL (8.5-10.1); CREATININE 1.4 mg/dL (0.55-1.3); POTASSIUM 4.2 mmol/L (3.5-5.1); TOT PROT 7.3 g/dl (6.4-8.2)
--- NOTE | 2019-10-08 19:36 | PN ---
Teaching Attending Note Name of Resident: Holden Galindo ATTENDING PHYSICIAN STATEMENT I saw and evaluated the patient. I reviewed the resident's note and discussed the case with the resident. I agree with the resident's findings and plan as documented. SUBJECTIVE: Patient is an 79 year old man with a PMH of Venous stasis, Osteomyelitis, [place] use and Chronic nonhealing left ankle ulcer who presents after two unwitnessed falls this afternoon and this AM. Per patient he was making coffee this AM when his knee buckled, he fell backwards and hit his head on a door. He did not lose consciousness. EMS was called and the patient was helped to his feet but refused to go to the hospital. Later in the afternoon the patient was leaving the bath room when his knee buckled again and he fell forward onto the floor. He did not lose consciousness or hit his head during this episode. EMS was called a second time and while helping him out of his house, his arm scraped against the corner of a counter which cut his skin. Patient denies chest pain, shortness of breath, abdominal pain, headache, palpitations, dizziness, fever, chills, nausea, vomit ing, diarrhea, constipation, dysuria, frequency, urgency, melena, hematochezia or hematuria. Denies alcohol or illicit drug use. No sick contacts or recent travels. Family history is unremarkable. OBJECTIVE: Alert and not orthostatic Vital Signs Period Temp Pulse Resp BP Sys/Zhou Pulse Ox Last 24 Hr 96.5 F 76-78 19-20 115-145/51-82 95-100 HEENT: No Jaundice, eye redness or discharge, PERRLA, EOMI. Normocephalic, atraumatic. External ears are normal and hearing is grossly intact. No nasal discharge. Neck: Supple, nontender. No palpable adenopathy or thyromegaly. No JVD Chest: Good effort. Clear to auscultation and percussion. Heart: Regular. No S3, rub or murmur Abdomen: Not distended, soft, nontender and no HSM. No rebound or guarding. Normal bowel sounds. Ext: Peripheral pulses intact. No leg edema. Lacerations on back of right forearm. Skin: Warm and dry. No petechiae, rash or ecchymosis. Neuro: Alert. Oriented x3. CN 2-12 grossly intact. Sensation grossly intact in all four extremities and DTR are symmetric. Psych: Appropriate mood and affect. Good insight. Home Medications Medication Instructions Recorded Beta-Carotene(A) W-C and E/Min 1 tab PO BID 09/16/19 [Ocuvite (Nf) -] Abnormal Lab Results 10/08/19 10/08/19 10/08/19 16:32 16:32 16:32 Plt Count 129 L PT with INR 13.40 H INR 1.13 H BUN 34.0 H Creatinine 1.4 H Current Medications Generic Name Dose Route Start Last Admin Trade Name Freq PRN Reason Stop Dose Admin Enoxaparin Sodium 40 mg 10/09/19 10:00 Lovenox - SQ BID MICHOACANO Sodium Chloride 1,000 mls @ 75 mls/hr 10/08/19 22:45 Normal Saline - IV ASDIR MICHOACANO ASSESSMENT AND PLAN: 1. Recurrent falls - Etiology of falls is unclear. he takes "Beet" to lower his BP! - though he does not have an official diagnosis of hypertension. No evidence of acute intracranial pathology on noncontrast head CT scan. C-spine CT did not show any fracture or subluxation. CXR shows cardiomegaly with increased interstitial markings and hilar prominence. EKG shows NSR at 76/minute and QTc 454, LAFB, IRBBB (new since 02/2019) with non specific T wave abnormalties. Initial troponin is negative. Got DPT vaccine in the ER. Low platelets is unexplained - will monitor daily. Will admit to telemetry, hydrate gently with IV NS, get urinalysis STAT, urine toxicology, trend troponin, repeat EKG, get ECHO, TSH, carotid doppler, fasting lipids, brain MRI, do speech and swallow evaluation, neurochecks and implement fall/aspiration/seizure precautions. Consult PT/Neurology/Cardiology. Viral testing for COVID-19 ordered and patient placed on airborne, droplet and contact isolation. 2. ?RAKESH Cause unclear - urinalysis is pending. Will get kidney sonogram, hydrate gently, monitor urine output and consult Nephrology. Avoid nephrotoxic agents such as NSAIDS, aminoglycosides, contrast dyes and certain Alternative medicine products. 3. Tobacco Use Counseled on risks associated with tobacco use. We will provide patient all the necessary assistance to facilitate smoking cessation and prescribe Nicotine patch. 4. Obesity Counseled on the risks associated with obesity. Will provide patient all the necessary assistance, counseling and positive reinforcement to facilitate weight loss. Consult test department helper. 5. DVT prophylaxis - Lovenox 40 mg SQ q 12 hours. 6. Advance directives - Full code
[2019-10-08] MEDS ORDERED: SODIUM CHLORIDE 1,000 ML IV SCH (22:45)
--- NOTE | 2019-10-08 23:02 | HP ---
CHIEF COMPLAINT: Falls 2x PCP: HISTORY OF PRESENT ILLNESS: This is an 79 year old male with PMH of venous stasis and L ankle ulcer. He presented to the ER after 2 falls earlier today. First fall was around 9AM, pt was standing and pouring coffee in the kitchen, when he felt his R knee buckle and he landed on his gluteus irais, and then lied down on the floor. Hi witnesed the event, EMS was called, but patient refused to be taken to the hospital. He denies any LOC or head trauma. Later around 1PM, he was walking to the terrace to smoke a cigarette when he felt his R knee buckle again, this time he fell to his left and landed on his L elbow, again without LOC or head trauma. EMS was called and he was transported to the ER> On his way out of the elevator he scraped his R forearm. He denies any aura, prodromal symptoms, states did not observe and seizure like activity, he has never had a fall before, and denies fevers, chills, SOB, AMS, chest pain, nausea, vomiting, diarrhea. He was last seen at [facility] in Feb for L ankle ulcer and was found to have OM, wound cx positive for Proteus Mirabilis, was treated with 6 weeks of Ceftriaxone after PICC line insertion. He goes to wound care, Dr Hagan, on Fridays ER course was notable for: (1) CT Head: Mild R preseptal soft tissue swelling (2) C-Spine: C5/6 osteophyte complex with mild stenosis (3) Tetanus shot Recent Travel: denies PAST MEDICAL HISTORY: Takes Eye drops and Beets for blood pressure maintenance (Beets contain nitrates which are believed to lower BP by undergoing conversion to NO, providing vasodilation) Never had a colonoscopy PAST SURGICAL HISTORY: Appendix removed at the age of 15 Social History: Smokin/2 ppd for 65 years Alcohol: Quit 13 years ago Drugs: none Allergies No Known Allergies Allergy (Verified 09/16/19 10:41) HOME MEDICATIONS: Home Medications Medication Instructions Recorded Beta-Carotene(A) W-C and E/Min 1 tab PO BID 09/16/19 [Ocuvite (Nf) -] REVIEW OF SYSTEMS CONSTITUTIONAL: Absent: fever, chills, diaphoresis, generalized weakness, malaise, loss of appetite, weight change HEENT: Absent: rhinorrhea, nasal congestion, throat pain, throat swelling, difficulty swallowing, mouth swelling, ear pain, eye pain, visual changes CARDIOVASCULAR: Absent: chest pain, syncope, palpitations, irregular heart rate, lightheadedness, peripheral edema RESPIRATORY: Absent: cough, shortness of breath, dyspnea with exertion, orthopnea, wheezing, stridor, hemoptysis GASTROINTESTINAL: Absent: abdominal pain, abdominal distension, nausea, vomiting, diarrhea, constipation, melena, hematochezia GENITOURINARY: Absent: dysuria, frequency, urgency, hesitancy, hematuria, flank pain, genital pain MUSCULOSKELETAL: Absent: myalgia, arthralgia, joint swelling, back pain, neck pain SKIN: Absent: rash, itching, pallor HEMATOLOGIC/IMMUNOLOGIC: Absent: easy bleeding, easy bruising, lymphadenopathy, frequent infections ENDOCRINE: Absent: unexplained weight gain, unexplained weight loss, heat intolerance, cold intolerance NEUROLOGIC: Absent: headache, focal weakness or paresthesias, dizziness, unsteady gait, seizure, mental status changes, bladder or bowel incontinence PSYCHIATRIC: Absent: anxiety, depression, suicidal or homicidal ideation, hallucinations. PHYSICAL EXAMINATION Vital Signs - 24 hr 10/08/19 10/08/19 10/08/19 15:02 17:02 17:19 Temperature 96.5 F L Pulse Rate 78 Pulse Rate [ 76 Right Radial] Respiratory 19 20 Rate Blood Pressure 145/82 Blood Pressure 115/51 L [Left Arm] O2 Sat by Pulse 100 100 95 Oximetry (%) 10/08/19 10/08/19 19:29 22:38 Temperature 98.8 F 100 F H Pulse Rate 79 Pulse Rate [ 69 Right Radial] Respiratory 17 20 Rate Blood Pressure 130/88 Blood Pressure 100/63 [Left Arm] O2 Sat by Pulse 96 99 Oximetry (%) GENERAL: Awake, alert, and fully oriented, in no acute distress. HEAD: Normal with no signs of trauma. EYES: Pupils equal, round and reactive to light, extraocular movements intact, sclera anicteric, conjunctiva clear. No lid lag. EARS, NOSE, THROAT: Ears normal, nares patent, oropharynx clear without exudates. Moist mucous membranes. NECK: Normal range of motion, supple without lymphadenopathy, JVD, or masses. LUNGS: Breath sounds equal, clear to auscultation bilaterally. No wheezes, and no crackles. No accessory muscle use. HEART: Regular rate and rhythm, normal S1 and S2 without murmur, rub or gallop. ABDOMEN: Soft, nontender, not distended, normoactive bowel sounds, no guarding, no rebound, no masses. No hepatomegaly or splenomegaly. MUSCULOSKELETAL: Normal range of motion at all joints. No bony deformities or tenderness. No CVA tenderness. UPPER EXTREMITIES: 2+ pulses, warm, well-perfused. No cyanosis. No clubbing. No peripheral edema. LOWER EXTREMITIES: 2+ pulses, LLE bandaged, pt refuses exam NEUROLOGICAL: Cranial nerves II-XII intact. Normal speech. Normal gait. PSYCHIATRIC: Cooperative. Good eye contact. Appropriate mood and affect. SKIN: Warm, dry, normal turgor, no rashes or lesions noted, normal capillary refill. Laboratory Results - last 24 hr 10/08/19 10/08/19 10/08/19 16:32 16:32 16:32 WBC 7.7 RBC 4.84 Hgb 15.0 Hct 44.7 D MCV 92.2 MCH 31.0 MCHC 33.6 RDW 14.2 Plt Count 129 L MPV 9.3 Absolute Neuts (auto) 6.2 Neutrophils % 80.4 D Lymphocytes % 13.6 D Monocytes % 5.5 Eosinophils % 0.0 D Basophils % 0.5 Nucleated RBC % 0 PT with INR 13.40 H INR 1.13 H PTT (Actin FS) 28.2 Sodium 137 Potassium 4.2 Chloride 105 Carbon Dioxide 23 Anion Gap 10 BUN 34.0 H Creatinine 1.4 H Est GFR (CKD-EPI)AfAm 54.22 Est GFR (CKD-EPI)NonAf 46.79 Random Glucose 79 Calcium 8.6 Total Bilirubin 0.7 AST 32 ALT 18 Alkaline Phosphatase 61 Creatine Kinase 144 Troponin I 0.02 Total Protein 7.3 Albumin 3.5 ASSESSMENT/PLAN: 79 year old male with PMH of venous stasis and L ankle ulcer. He presented to the ER after 2 falls earlier today. #Falls - Unclear etiology, underlying infection/ orthostatic/ medication SE ? - Orthostatic vitals negative Supine: 116/47 HR 72, Seated: 114/49 HR 68 - Cardio consult placed, Echo as per cardio - Carotid Doppler - UA, UTox, UCx ordered #RAKESH? - B/C 34/1.4 - Baseline seems to be around 0.9-1.2 - N/S @75 - Renal US ordered - Nephro consult placed #Thrombocytopenia - 129, downtrending gradually since February - Currently unexplained - No complaints of bleeding - Will monitor for now, would recommend outpatient Heme follow-up #LLE wound - Consult placed, Dr. Hagan for wound care #FEN - Regular diet #Prophylaxis - Lovenox 40mg BID (increased dose for weight) #Dispo - Monitor in Tele - Possible rehab placement at the time of DC ATTENDING PHYSICIAN STATEMENT I saw and evaluated the patient. I reviewed the resident's note and discussed the case with the resident. I agree with the resident's findings and plan as documented. SUBJECTIVE: OBJECTIVE: ASSESSMENT AND PLAN:
[2019-10-09 00:16] VITALS: BMI 37.2
[2019-10-09] MEDS: ACETAMINOPHEN 325 MG TABLET (FP) PO PRN ×4 (00:28→23:28)
[2019-10-09 04:38] LABS: URINE APPEARANCE CLEAR; URINE BILIRUBIN NEGATIVE (NEGATIVE); URINE COLOR YELLOW; URINE GLUCOSE (UA) NEGATIVE (NEGATIVE); URINE KETONE 1+ (NEGATIVE); URINE LEUK ESTERASE NEGATIVE (NEGATIVE); URINE NITRITE NEGATIVE (NEGATIVE); URINE PROTEIN TRACE (NEGATIVE); URINE UROBILINOGEN 0.2 mg/dL (0.2-1.0)
[2019-10-09 07:33] LABS: BASO % 0.2 % (0-2.0); HEMATOCRIT 39.2 % (35.4-49); LYMPH % 11.2 % (8-40); MCH 30.1 pg (25.7-33.7); MCHC 33.1 g/dl (32.0-35.9); MEAN CELL VOLUME 90.9 fl (80-96); MEAN PLT VOLUME 9.1 fl (7.5-11.1); MONO % 7.6 % (3.8-10.2); PLATELET COUNT 114 K/MM3 (134-434); RBC 4.31 M/mm3 (4.00-5.60); RDW 14.2 % (11.9-15.9); WHITE BLOOD COUNT 7.2 K/mm3 (4.0-10.0)
[2019-10-09 08:01] LABS: ALBUMIN 2.9 g/dl (3.4-5.0); BILIRUBIN,TOTAL 0.7 mg/dL (0.2-1); BLOOD UREA NITROGEN 27.6 mg/dL (7-18); CREATININE 1.2 mg/dL (0.55-1.3); MAGNESIUM 2.1 mg/dL (1.8-2.4); PHOSPHOROUS 2.9 mg/dL (2.5-4.9); POTASSIUM 3.5 mmol/L (3.5-5.1)
[2019-10-09 08:03] LABS: TOT PROT 6.2 g/dl (6.4-8.2)
[2019-10-09] MEDS ORDERED: VANCOMYCIN HCL 1,500 MG in DEXTROSE 5%-WATER - 500 ML IVPB ONE (09:22)
[2019-10-09] MEDS ORDERED: PIPERACILLIN/TAZOB 4.5 GM 4.5 GM in DEXTROSE 5%-WATER 100 ML IVPB ONE (09:22)
--- NOTE | 2019-10-09 09:30 | PN ---
Progress Note (short form) - Note Progress Note: Subjective: no fever or chills. No n/v , no pain , denies loss of appetite or poor po intake. wounds are chronic , and dressing was changes on thursday 3 days ago and was to remain therex 1 week deneid any LOC, dizziness, palpitations or any other sx befoer or after the fall,. Knee buckled and that's it. No previous falls Objective: Vital Signs: Last Vital Signs Temp Pulse Resp BP Pulse Ox 99.8 F H 76 16 120/56 L 95 10/09/19 07:05 10/09/19 05:48 10/09/19 05:48 10/09/19 05:48 10/09/19 05:48 Laboratory Results - last 24 hr 10/08/19 10/08/19 10/08/19 16:32 16:32 16:32 WBC 7.7 RBC 4.84 Hgb 15.0 Hct 44.7 D MCV 92.2 MCH 31.0 MCHC 33.6 RDW 14.2 Plt Count 129 L MPV 9.3 Absolute Neuts (auto) 6.2 Neutrophils % 80.4 D Lymphocytes % 13.6 D Monocytes % 5.5 Eosinophils % 0.0 D Basophils % 0.5 Nucleated RBC % 0 PT with INR 13.40 H INR 1.13 H PTT (Actin FS) 28.2 Sodium 137 Potassium 4.2 Chloride 105 Carbon Dioxide 23 Anion Gap 10 BUN 34.0 H Creatinine 1.4 H Est GFR (CKD-EPI)AfAm 54.22 Est GFR (CKD-EPI)NonAf 46.79 Random Glucose 79 Calcium 8.6 Phosphorus Magnesium Total Bilirubin 0.7 AST 32 ALT 18 Alkaline Phosphatase 61 Creatine Kinase 144 Troponin I 0.02 Total Protein 7.3 Albumin 3.5 TSH Urine Color Urine Appearance Urine pH Ur Specific [place] Urine Protein Urine Glucose (UA) Urine Ketones Urine Blood Urine Nitrite Urine Bilirubin Urine Urobilinogen Ur Leukocyte Esterase 10/09/19 10/09/19 10/09/19 04:11 06:50 06:50 WBC 7.2 RBC 4.31 Hgb 13.0 Hct 39.2 MCV 90.9 MCH 30.1 MCHC 33.1 RDW 14.2 Plt Count 114 L MPV 9.1 Absolute Neuts (auto) 5.8 Neutrophils % 81.0 Lymphocytes % 11.2 Monocytes % 7.6 Eosinophils % 0.0 Basophils % 0.2 Nucleated RBC % 0 PT with INR INR PTT (Actin FS) Sodium 139 Potassium 3.5 Chloride 105 Carbon Dioxide 24 Anion Gap 10 BUN 27.6 H Creatinine 1.2 Est GFR (CKD-EPI)AfAm 65.33 Est GFR (CKD-EPI)NonAf 56.37 Random Glucose 93 Calcium 8.0 L Phosphorus 2.9 Magnesium 2.1 Total Bilirubin 0.7 AST 29 ALT 17 Alkaline Phosphatase 53 Creatine Kinase Troponin I 0.03 Total Protein 6.2 L Albumin 2.9 L TSH 0.83 Urine Color Yellow Urine Appearance Clear Urine pH 5.0 Ur Specific [place] 1.022 Urine Protein Trace Urine Glucose (UA) Negative Urine Ketones 1+ H Urine Blood Negative Urine Nitrite Negative Urine Bilirubin Negative Urine Urobilinogen 0.2 Ur Leukocyte Esterase Negative Physical Exam: NAD ,awake, alert, cooperative CV: RRR, no MRG Lungs: minimal bibasilar crackles Abd: obese. Ext : venous stasis on both legs . L medial lower leg ulcer 2x3 cm in diameter with sllough at base , and green discharge on gauze. a smaller ulcer is seen 1 cm in diameter with green discharge. fungal infection in last interdigital web o n Left Imaging: CTs and cxray reviewed. Assessment/Plan: 79 y/o man with h/o Venous stasis, Osteomyelitis, Tactive smoker , Chronic nonhealing left ankle ulcer , with h/o infection , who presents after 2 falls at home. 1- FAlls: mechanical. NO syncope - check orthostatic VS - carotid is being done - No need fro echo or further cardia investigations. cancel cardiac consult 2- FEver : unclear source. possibly infected wounds on L leg - previous wound cx reviewed. pseudomonas, E FAecalis, Staph - COVID pending - give a dose of vanco and zosyn and consult ID to evaluate the L leg wounds - add nysttin to L intergigital web /tinea pedis - wound care per dr. Hagan when he evaluate . 3- RAKESH : resolved, no clear etiology. - renal US done - cr improved . CrCl 85% - cancel renal consult - cont IVF for 12 more hours 4- DVT PX : change lovenox to once daily instead of BID Visit type - Emergency Visit Emergency Visit: Yes ED Registration Date: 10/08/19 Care time: The patient presented to the Emergency Department on the above date and was hospitalized for further evaluation of their emergent condition. - New Patient This patient is new to me today: Yes Date on this admission: 10/09/19 - Critical Care Critical Care patient: No - Medication Review Med list reviewed for High Risk Meds patients 65 and older: Yes
[2019-10-09] MEDS ORDERED: SODIUM CHLORIDE 1,000 ML IV SCH (09:36)
[2019-10-09] MEDS ORDERED: ENOXAPARIN NA (PORCINE) 40 MG/0.4 ML DISP.SYRIN SQ SCH (10:00)
[2019-10-09] MEDS ORDERED: DEXTROSE 5%-WATER 100 ML IVPB ONE (10:50)
[2019-10-09] MEDS ORDERED: PIPERACILLIN/TAZOBACTAM 4.5 GM VIAL IVPB ONE (10:50)
[2019-10-09] MEDS: ENOXAPARIN NA (PORCINE) 40 MG/0.4 ML DISP.SYRIN SQ SCH (11:46)
--- NOTE | 2019-10-09 12:34 | CON.ID ---
Consult Consult Specialty:: infectious diseases Referred by:: Reason for Consultation:: sepsis wound on the leg - History of Present Illness Chief Complaint: weakness and fall,fever History of Present Illness: 79 year old male with PMH of venous stasis and L ankle ulcer. He presented to the ER after 2 falls earlier today. First fall was around 9AM, pt was standing and pouring coffee in the kitchen, when he felt his R knee buckle and he landed on his gluteus irais, and then lied down on the floor. Hi witnesed the event, EMS was called, but patient refused to be taken to the hospital. He denies any LOC or head trauma. Later around 1PM, he was walking to the terrace to smoke a cigarette when he felt his R knee buckle again, this time he fell to his left and landed on his L elbow, again without LOC or head trauma. EMS was called and he was transported to the ER> On his way out of the elevator he scraped his R forearm. He denies any aura, prodromal symptoms, states did not observe and seizure like activity, he has never had a fall before, and denies fevers, chills, SOB, AMS, chest pain, nausea, vomiting, diarrhea. above was the history of the patient on admission looks still weak and says not strength in his legs since admission patient has been spiking fever - History Source History Provided By: Patient Limitations to Obtaining History: No Limitations - Past Medical History Infectious Disease: Yes: Other - Alcohol/Substance Use Hx Alcohol Use: No - Smoking History Smoking history: Current every day smoker Have you smoked in the past 12 months: Yes Aproximately how many cigarettes per day: 10 Home Medications - Allergies Allergies/Adverse Reactions: Allergies Allergy/AdvReac Type Severity Reaction Status Date / Time No Known Allergies Allergy Verified 09/16/19 10:41 - Home Medications Home Medications: Ambulatory Orders Beta-Carotene(A) W-C and E/Min [Ocuvite (Nf) -] 1 tab PO BID 09/16/19 Review of Systems - Review of Systems Constitutional: reports: Weakness Eyes: reports: No Symptoms HENT: reports: No Symptoms Neck: reports: No Symptoms Cardiovascular: reports: No Symptoms Respiratory: reports: No Symptoms Gastrointestinal: reports: No Symptoms Genitourinary: reports: No Symptoms Integumentary: reports: No Symptoms Neurological: reports: Weakness Endocrine: reports: No Symptoms Hematology/Lymphatic: reports: No Symptoms Psychiatric: reports: No Symptoms Physical Exam Vital Signs: Vital Signs Temperature 99.1 F 10/09/19 11:00 Pulse Rate 99 H 10/09/19 11:00 Respiratory Rate 18 10/09/19 11:00 Blood Pressure 104/60 10/09/19 11:00 O2 Sat by Pulse Oximetry (%) 94 L 10/09/19 11:00 Constitutional: Yes: Well Nourished, No Distress, Calm Eyes: Yes: Conjunctiva Clear HENT: Yes: Atraumatic, Normocephalic Neck: Yes: Supple, Trachea Midline Cardiovascular: Yes: Regular Rate and Rhythm Respiratory: Yes: Regular, CTA Bilaterally Gastrointestinal: Yes: Normal Bowel Sounds, Soft Musculoskeletal: Yes: WNL Extremities: Yes: Other Wound/Incision: Yes: Dressing Removed, Other (wound on the anle) Neurological: Yes: Alert, Oriented Psychiatric: Yes: Alert, Oriented Labs: CBC, BMP 10/09/19 06:50 10/09/19 06:50 Imaging - Results Chest X-ray: Report Reviewed, Image Reviewed Cat Scan: Report Reviewed, Image Reviewed Ultrasound: Report Reviewed, Image Reviewed Assessment/Plan patient comign in with fall and leukocytosis wound looked at will continue zosyn monitor wbc monitor fevers will see if the patient continues to spike fevers
[2019-10-09] MEDS ORDERED: PT OWN MED DRAWER 7, Y5N ONE (13:40)
[2019-10-09] MEDS: NICOTINE 14 MG/24 HOURS TOPICAL PATCH TD SCH (13:45)
[2019-10-09] MEDS: NYSTATIN 100000 UNIT/GM TOPICAL OINTMENT 15 GM TUBE TP SCH ×2 (13:45→21:08)
[2019-10-09] MEDS ORDERED: DEXTROSE 5%-WATER - 50 ML IVPB ONE (16:20)
[2019-10-09] MEDS ORDERED: PIPERACILLIN/TAZOBACTAM 3.375 GM VIAL IVPB ONE (16:20)
[2019-10-09] MEDS: PIPERACILLIN/TAZOB 3.375 GM 3.375 GM in DEXTROSE 5%-WATER - 50 ML IVPB SCH (17:09)
[2019-10-10] MEDS ORDERED: DEXTROSE 5%-WATER - 50 ML IVPB ONE ×3 (01:42→18:05)
[2019-10-10] MEDS ORDERED: PIPERACILLIN/TAZOBACTAM 3.375 GM VIAL IVPB ONE ×3 (01:42→18:04)
[2019-10-10] MEDS: PIPERACILLIN/TAZOB 3.375 GM 3.375 GM in DEXTROSE 5%-WATER - 50 ML IVPB SCH ×3 (01:44→18:40)
[2019-10-10 08:50] LABS: BASO % 0.6 % (0-2.0); EOS % 0.3 % (0-4.5); HEMATOCRIT 39.8 % (35.4-49); HEMOGLOBIN 13.1 GM/dL (11.7-16.9); LYMPH % 9.5 % (8-40); MCH 30.1 pg (25.7-33.7); MCHC 32.9 g/dl (32.0-35.9); MEAN CELL VOLUME 91.5 fl (80-96); MEAN PLT VOLUME 9.1 fl (7.5-11.1); MONO % 6.3 % (3.8-10.2); NEUT % 83.3 % (42.8-82.8); PLATELET COUNT 95 K/MM3 (134-434); RBC 4.35 M/mm3 (4.00-5.60); RDW 14.2 % (11.9-15.9); WHITE BLOOD COUNT 6.7 K/mm3 (4.0-10.0)
[2019-10-10 09:11] LABS: CALCIUM 7.7 mg/dL (8.5-10.1); CREATININE 1.3 mg/dL (0.55-1.3); MAGNESIUM 2.3 mg/dL (1.8-2.4); PHOSPHOROUS 3.4 mg/dL (2.5-4.9); POTASSIUM 3.5 mmol/L (3.5-5.1)
[2019-10-10] MEDS: ENOXAPARIN NA (PORCINE) 40 MG/0.4 ML DISP.SYRIN SQ SCH (11:08)
[2019-10-10] MEDS: NICOTINE 14 MG/24 HOURS TOPICAL PATCH TD SCH (11:08)
[2019-10-10] MEDS: NYSTATIN 100000 UNIT/GM TOPICAL OINTMENT 15 GM TUBE TP SCH ×2 (11:08→21:47)
--- NOTE | 2019-10-10 12:14 | PN ---
Progress Note, Physician History of Present Illness: feels better nearly back to baseline - Current Medication List Current Medications: Active Medications Acetaminophen (Tylenol -) 650 mg PO Q6H PRN PRN Reason: FEVER Last Admin: 10/09/19 23:28 Dose: 650 mg Documented by: Enoxaparin Sodium (Lovenox -) 40 mg SQ DAILY [facility] Last Admin: 10/10/19 11:08 Dose: 40 mg Documented by: Piperacillin Sod/Tazobactam (Sod 3.375 gm/ Dextrose) 50 mls @ 100 mls/hr IVPB Q8H-IV MICHOACANO; Protocol Last Admin: 10/10/19 11:08 Dose: 100 mls/hr Documented by: Nicotine (Nicoderm Patch -) 14 mg TD DAILY [facility] Last Admin: 10/10/19 11:08 Dose: 14 mg Documented by: Nystatin (Mycostatin Ointment -) 1 applic TP BID [facility] Last Admin: 10/10/19 11:08 Dose: 1 applic Documented by: - Objective Vital Signs: Vital Signs Temperature 99.7 F H 10/10/19 09:00 Pulse Rate 92 H 10/10/19 09:00 Respiratory Rate 18 10/10/19 09:00 Blood Pressure 97/55 L 10/10/19 09:00 O2 Sat by Pulse Oximetry (%) 98 10/10/19 09:00 Constitutional: Yes: No Distress, Calm HENT: Yes: Atraumatic, Normocephalic Cardiovascular: Yes: S1, S2 Respiratory: Yes: Regular, CTA Bilaterally Gastrointestinal: Yes: Normal Bowel Sounds, Soft Musculoskeletal: Yes: WNL Extremities: Yes: WNL Wound/Incision: Yes: Dressing Dry and Intact Neurological: Yes: Alert, Oriented Psychiatric: Yes: Alert, Oriented Labs: CBC, BMP 10/10/19 07:44 10/10/19 07:44 INR, PTT INR 1.13 (0.83-1.09) H 10/08/19 16:32 Assessment/Plan 79 y/o man with h/o Venous stasis, Osteomyelitis, Tactive smoker , Chronic no nhealing left ankle ulcer , with h/o infection , who presents after 2 falls at home. 1- FAlls 2- FEver 3aki weakness plan continue abx await for wound cx
--- NOTE | 2019-10-10 13:36 | PN ---
Physical Exam: SUBJECTIVE: Patient seen and examined at bedside. Overnight, patient had a fever of 101.8 F overnight which went down after administration of Tylenol. Temp this AM was 99.8 F. Patient deferred physical exam. Physical exam findings reported by Dr. Flores. OBJECTIVE: Vital Signs Period Temp Pulse Resp BP Sys/Zhou Pulse Ox Last 24 Hr 98.5 F-101.8 F 71-92 18-22 97-140/49-110 94-98 GENERAL: AAOx3, in no acute distress HEENT: NCAT, PERRLA, EOMI, sclera anicteric, conjunctiva clear, oropharynx clear w/o exudates. MMM. NECK: Normal ROM, supple, no lymphadenopathy, JVD, or masses LUNGS: CTABL no wheezes/ rhonchi/ rales. No distress, speaks in full sentences. No increased work of breathing. HEART: RRR, normal S1 S2, no M/R/G, peripheral pulses 2+ and equal b/l ABDOMEN: Soft, NTND, + BS. No guarding or rebound. No hepatomegaly or splenomegaly. MSK: ROM WNL EXTREMITIES: Venous stasis b/l. L nedial lower leg ulcer 2x3 cm in diameter with slough at base and green discharge on gauze. A smaller NEUROLOGICAL: CN II-XII intact. Normal speech, normal gait, no focal sensorimotor deficits. SKIN: Warm, Dry, normal turgor, no rashes or lesions noted Laboratory Results - last 24 hr 10/10/19 10/10/19 07:44 07:44 WBC 6.7 RBC 4.35 Hgb 13.1 Hct 39.8 MCV 91.5 MCH 30.1 MCHC 32.9 RDW 14.2 Plt Count 95 L MPV 9.1 Absolute Neuts (auto) 5.6 Neutrophils % 83.3 H Lymphocytes % 9.5 Monocytes % 6.3 Eosinophils % 0.3 D Basophils % 0.6 Nucleated RBC % 0 Sodium 140 Potassium 3.5 Chloride 107 Carbon Dioxide 24 Anion Gap 9 BUN 24.0 H Creatinine 1.3 Est GFR (CKD-EPI)AfAm 59.31 Est GFR (CKD-EPI)NonAf 51.17 Random Glucose 92 Calcium 7.7 L Phosphorus 3.4 Magnesium 2.3 Active Medications Generic Name Dose Route Start Last Admin Trade Name Freq PRN Reason Stop Dose Admin Acetaminophen 650 mg 10/09/19 00:08 10/09/19 23:28 Tylenol - PO 650 mg Q6H PRN Administration FEVER Enoxaparin Sodium 40 mg 10/09/19 10:00 10/10/19 11:08 Lovenox - SQ 40 mg DAILY [facility]HOACANO Administration Piperacillin Sod/Tazobactam 50 mls @ 100 mls/hr 10/09/19 18:00 10/10/19 11:08 Sod 3.375 gm/ Dextrose IVPB 100 mls/hr Q8H-IV MICHOACANO Administration Protocol Nicotine 14 mg 10/09/19 11:45 10/10/19 11:08 Nicoderm Patch - TD 14 mg DAILY MICHOAACNO Administration Nystatin 1 applic 10/09/19 10:00 10/10/19 11:08 Mycostatin Ointment - TP 1 applic BID MICHOACANO Administration ASSESSMENT/PLAN: ATTENDING PHYSICIAN STATEMENT I saw and evaluated the patient. I reviewed the resident's note and discussed the case with the resident. I agree with the resident's findings and plan as documented. SUBJECTIVE: OBJECTIVE: ASSESSMENT AND PLAN:
--- NOTE | 2019-10-10 13:41 | PN ---
Physical Exam: SUBJECTIVE: Patient seen and examined at bedside. Overnight, patient had a fever of 101.8 which resolved after administration of Tylenol. Today's temperature was 99.8. Patient refused to be examined. Physical exam findings as per Dr. Flores. OBJECTIVE: Vital Signs Period Temp Pulse Resp BP Sys/Zhou Pulse Ox Last 24 Hr 98.5 F-101.8 F 71-92 18-22 97-140/49-110 94-98 GENERAL: AAOx3, in no acute distress HEENT: NCAT, PERRLA, EOMI, sclera anicteric, conjunctiva clear, oropharynx clear w/o exudates. MMM. NECK: Normal ROM, supple, no lymphadenopathy, JVD, or masses LUNGS: CTABL no wheezes/ rhonchi/ rales. No distress, speaks in full sentences. No increased work of breathing. HEART: RRR, normal S1 S2, no M/R/G, peripheral pulses 2+ and equal b/l ABDOMEN: Soft, NTND, + BS. No guarding or rebound. No hepatomegaly or splenomegaly. MSK: ROM WNL EXTREMITIES: venous stasis on n/l legs . L medial lower leg ulcer 2x3 cm in diameter with slough at base , and green discharge on gauze. a smaller ulcer is seen 1 cm in diameter with green discharge. fungal infection in last interdigital web on Left NEUROLOGICAL: CN II-XII intact. Normal speech, normal gait, no focal sensorimotor deficits. SKIN: venous stasis ulcers on L medial lower leg Laboratory Results - last 24 hr 10/10/19 10/10/19 07:44 07:44 WBC 6.7 RBC 4.35 Hgb 13.1 Hct 39.8 MCV 91.5 MCH 30.1 MCHC 32.9 RDW 14.2 Plt Count 95 L MPV 9.1 Absolute Neuts (auto) 5.6 Neutrophils % 83.3 H Lymphocytes % 9.5 Monocytes % 6.3 Eosinophils % 0.3 D Basophils % 0.6 Nucleated RBC % 0 Sodium 140 Potassium 3.5 Chloride 107 Carbon Dioxide 24 Anion Gap 9 BUN 24.0 H Creatinine 1.3 Est GFR (CKD-EPI)AfAm 59.31 Est GFR (CKD-EPI)NonAf 51.17 Random Glucose 92 Calcium 7.7 L Phosphorus 3.4 Magnesium 2.3 Active Medications Generic Name Dose Route Start Last Admin Trade Name Freq PRN Reason Stop Dose Admin Acetaminophen 650 mg 10/09/19 00:08 10/09/19 23:28 Tylenol - PO 650 mg Q6H PRN Administration FEVER Enoxaparin Sodium 40 mg 10/09/19 10:00 10/10/19 11:08 Lovenox - SQ 40 mg DAILY [facility] Administration Piperacillin Sod/Tazobactam 50 mls @ 100 mls/hr 10/09/19 18:00 10/10/19 11:08 Sod 3.375 gm/ Dextrose IVPB 100 mls/hr Q8H-IV MICHOACANO Administration Protocol Nicotine 14 mg 10/09/19 11:45 10/10/19 11:08 Nicoderm Patch - TD 14 mg DAILY [facility]O Administration Nystatin 1 applic 10/09/19 10:00 10/10/19 11:08 Mycostatin Ointment - TP 1 applic BID MICHOACANO Administration ASSESSMENT/PLAN: 79 y/o man with h/o Venous stasis, Osteomyelitis, Tactive smoker , Chronic nonhealing left ankle ulcer , with h/o infection , who presents after 2 falls at home on 10/08/2019. #Falls: mechanical. NO syncope - carotid done: showed minimal atherosclerotic disease with no evidence of hemodynamically significant stenosis. Low velocity flow is noted throughout the right carotid system. - No need fro echo or further cardiac investigations. cancel cardiac consult #Fever : unclear source. possibly infected wounds on L leg - previous wound cx reviewed. pseudomonas, E FAecalis, Staph - COVID pending - ID consulted: recommended continuing Zosyn and to monitor for fevers - add nysttin to L intergigital web/tinea pedis - wound care per dr. Hagan: Algenate to left LE ulcer and compressive vonda wraps to B/L LE #RAKESH : resolved, no clear etiology. - renal US done: morphologically normal kidneys with no evidence of hydronephrosis - cr improved . CrCl 85% - #DVT PX : lovenox once daily Visit type - Emergency Visit Emergency Visit: No - New Patient This patient is new to me today: Yes Date on this admission: 10/10/19 - Critical Care Critical Care patient: No - Discharge Referral Referred to [facility] Med P.C.: No - Medication Review Med list reviewed for High Risk Meds patients 65 and older: Yes ATTENDING PHYSICIAN STATEMENT I saw and evaluated the patient. I reviewed the resident's note and discussed the case with the resident. I agree with the resident's findings and plan as documented. SUBJECTIVE: OBJECTIVE: ASSESSMENT AND PLAN:
--- NOTE | 2019-10-10 15:46 | CONSULT ---
- Consultation REQUESTING PROVIDER: CONSULT REQUEST: We have been asked to surgically evaluate this patient for Left LE venous stasis ulcer. PCP: Rik Hagan DO HISTORY OF PRESENT ILLNESS: 79yoM well known and followed by Dr Hagan in the wound care clinic for chronic LE venous stasis ulcers. presented after two unwitnessed falls at home. The first time EMS was called and the patient was helped to his feet but refused to go to the hospital. Later in the afternoon the patient was leaving the bathroom when his right knee buckled again and he fell forward onto the floor. He did not lose consciousness or hit his head during this episode. EMS was called a second time and while helping him out of his house, his arm scraped against the corner of a counter which cut his skin. since his admission he has been spiking low grade fevers. He otherwise denies CP, SOB, N/V/D or chills. Past History - Medical History Anemia: No Asthma: No Cancer: No Cardiac Disorders: No CVA: No COPD: No CHF: No Dementia: No Diabetes: No GI Disorders: No Disorders: No HTN: No (patient denies) Hypercholesterolemia: No (patient denies) Liver Disease: No Seizures: No Thyroid Disease: No - Surgical History Abdominal Surgery: No Appendectomy: Yes (at 15 years old) Cardiac Surgery: No Cholecystectomy: No Lung Surgery: No Neurologic Surgery: No Orthopedic Surgery: No - Psycho-Social/Smoking History Smoking History: Current every day smoker Have you smoked in the past 12 months: Yes Number of Cigarettes Smoked Daily: 10 Cigars Per Day: 0 'Breaking Loose' booklet given: 04/01/19 - Medical History Allergies/Adverse Reactions: Allergies Allergy/AdvReac Type Severity Reaction Status Date / Time No Known Allergies Allergy Verified 09/16/19 10:41 Home Medications: Ambulatory Orders Beta-Carotene(A) W-C and E/Min [Ocuvite (Nf) -] 1 tab PO BID 09/16/19 - Review of Systems Constitutional: reports: Weakness in right knee Eyes: reports: No Symptoms HENT: reports: No Symptoms Neck: reports: No Symptoms Cardiovascular: reports: No Symptoms Respiratory: reports: No Symptoms Gastrointestinal: reports: No Symptoms Genitourinary: reports: No Symptoms Integumentary: reports: chronic venous stasis wounds Neurological: reports: Weakness Endocrine: reports: No Symptoms Hematology/Lymphatic: reports: No Symptoms Psychiatric: reports: No Symptoms Vital Signs Period Temp Pulse Resp BP Sys/Zhou Pulse Ox Last 24 Hr 98.5 F-101.8 F 71-92 18-22 97-140/49-110 94-98 Physical exam Constitutional: A&Ox3, NAD Eyes: Yes: Conjunctiva Clear HENT: Yes: Atraumatic, Normocephalic Respiratory: Yes: Unlabored resp on RA Gastrointestinal: Yes:, Soft, ND, NT Musculoskeletal: Yes: moving all extremities without limitation. Wound/Incision: Yes: Left ankle wound chronic skin changes throughout- stage 2 venous stasis ulcer @3x1.5cm over medial malleolus. Well defined with beefy clean base, no odor or d/c, surrounding tissue intact with no tracking erythema or evidence of infection. Right ankle with chronic skin changes and well healing chronic ulcer calus seen @ 2x1cm, surrounding tissue intact with no tracking erythema or bogginess. B/L LE compartments soft, supple and non-tender with +signal on doppler over DP Neurological: Yes: Alert, Oriented Psychiatric: Yes: Alert, Oriented Laboratory Results - last 24 hr 10/10/19 10/10/19 07:44 07:44 WBC 6.7 RBC 4.35 Hgb 13.1 Hct 39.8 MCV 91.5 MCH 30.1 MCHC 32.9 RDW 14.2 Plt Count 95 L MPV 9.1 Absolute Neuts (auto) 5.6 Neutrophils % 83.3 H Lymphocytes % 9.5 Monocytes % 6.3 Eosinophils % 0.3 D Basophils % 0.6 Nucleated RBC % 0 Sodium 140 Potassium 3.5 Chloride 107 Carbon Dioxide 24 Anion Gap 9 BUN 24.0 H Creatinine 1.3 Est GFR (CKD-EPI)AfAm 59.31 Est GFR (CKD-EPI)NonAf 51.17 Random Glucose 92 Calcium 7.7 L Phosphorus 3.4 Magnesium 2.3 Problem List - Problems (1) Ulcer of left ankle Code(s): L97.329 - NON-PRESSURE CHRONIC ULCER OF LEFT ANKLE WITH UNSP SEVERITY (2) Non-pressure chronic ulcer of left ankle with fat layer exposed Assessment/Plan: 79 yo with chronic left ankle venous stasis ulcer with no signs of infection and + signal on doppler. No indication for vascular intervention at this time. -Algenate to left LE ulcer -compressive vonda wraps to B/L LE -fever workup- ID following -f/u would cultures - re-consult vascular surgery PRN Evaluation and plan discussed with Dr Hagan Code(s): L97.322 - NON-PRESSURE CHRONIC ULCER OF LEFT ANKLE W FAT LAYER EXPOSED
[2019-10-10] MEDS ORDERED: LIDOCAINE 5% TOPICAL PATCH TP ONE (18:00)
--- NOTE | 2019-10-10 18:43 | PN ---
Teaching Attending Note Name of Resident: Melvina Brown ATTENDING PHYSICIAN STATEMENT I saw and evaluated the patient. I reviewed the resident's note and discussed the case with the resident. I agree with the resident's findings and plan as documented. SUBJECTIVE: seen in am , no pain, no ADAM , no SOB OBJECTIVE: NAD ,awake, alert, cooperative CV: RRR, no MRG Lungs: CTAB . Ext : venous stasis on both legs. L medial lower leg ulcer 2x3 cm in diameter with slough at base, and green discharge on gauze. a smaller ulcer is seen 1 cm in diameter with green discharge. fexam is not changed form yesterday Assessment/Plan: 79 y/o man with h/o Venous stasis, Osteomyelitis, Tactive smoker , Chronic nonhealing left ankle ulcer , with h/o infection , who presents after 2 falls at home. 1- Falls: mechanical. NO syncope. - carotid US reviewed. 2- Fever : unclear source. possibly infected wounds on L leg - follow blood cx - cont zosyn - wound care - Neg COVID - nystatin for foot 3- RAKESH: resolved 4- DVT PX : lovenox
--- NOTE | 2019-10-10 21:50 | EKG ---
Test Reason : Blood Pressure : / mmHG Vent. Rate : 076 BPM Atrial Rate : 076 BPM P-R Int : 172 ms QRS Dur : 112 ms QT Int : 404 ms P-R-T Axes : 008 -45 044 degrees QTc Int : 454 ms SINUS RHYTHM WITH MARKED SINUS ARRHYTHMIA LOW VOLTAGE QRS INCOMPLETE RIGHT BUNDLE BRANCH BLOCK LEFT ANTERIOR FASCICULAR BLOCK CANNOT RULE OUT ANTERIOR INFARCT (CITED ON OR BEFORE 25-FEB-2019) ABNORMAL ECG WHEN COMPARED WITH ECG OF 25-FEB-2019 14:36, INCOMPLETE RIGHT BUNDLE BRANCH BLOCK IS NOW PRESENT Confirmed by KEVAN CORDOBA MD ([id number]) on 10/10/2019 9:50:06 PM Referred By: Confirmed By:KEVAN CORDOBA MD
[2019-10-11] MEDS ORDERED: PIPERACILLIN/TAZOBACTAM 3.375 GM VIAL IVPB ONE ×4 (01:51→17:33)
[2019-10-11] MEDS ORDERED: DEXTROSE 5%-WATER - 50 ML IVPB ONE ×4 (01:51→17:33)
[2019-10-11] MEDS: PIPERACILLIN/TAZOB 3.375 GM 3.375 GM in DEXTROSE 5%-WATER - 50 ML IVPB SCH ×3 (02:18→17:35)
[2019-10-11] MEDS ORDERED: INSULIN (NOVOLOG) ASPART 100 UNITS/ML 10ML VIAL ONE (05:49)
[2019-10-11] MEDS ORDERED: LIDOCAINE PATCH REMOVAL MC ONE (06:00)
[2019-10-11 07:36] LABS: BASO % 0.4 % (0-2.0); EOS % 3.5 % (0-4.5); HEMATOCRIT 40.5 % (35.4-49); HEMOGLOBIN 13.3 GM/dL (11.7-16.9); LYMPH % 17.3 % (8-40); MCH 29.9 pg (25.7-33.7); MCHC 32.8 g/dl (32.0-35.9); MEAN CELL VOLUME 91.4 fl (80-96); MEAN PLT VOLUME 9.5 fl (7.5-11.1); MONO % 8.8 % (3.8-10.2); PLATELET COUNT 108 K/MM3 (134-434); RBC 4.43 M/mm3 (4.00-5.60); WHITE BLOOD COUNT 4.2 K/mm3 (4.0-10.0)
[2019-10-11 07:56] LABS: CALCIUM 7.7 mg/dL (8.5-10.1); CREATININE 1.4 mg/dL (0.55-1.3); POTASSIUM 3.7 mmol/L (3.5-5.1)
--- NOTE | 2019-10-11 10:21 | PN ---
Teaching Attending Note Name of Resident: Santy Kim ATTENDING PHYSICIAN STATEMENT I saw and evaluated the patient. I reviewed the resident's note and discussed the case with the resident. I agree with the resident's findings and plan as documented. SUBJECTIVE: Patient has no new complains OBJECTIVE: Vital Signs Temperature 98.6 F 10/11/19 05:00 Pulse Rate 97 H 10/11/19 05:00 Respiratory Rate 18 10/11/19 05:00 Blood Pressure 112/71 10/11/19 05:00 O2 Sat by Pulse Oximetry (%) 95 10/11/19 05:00 PE: RUE laceration on xerofoam LLE: open wound , healing rest per resident's note CBCD WBC 4.2 K/mm3 (4.0-10.0) 10/11/19 06:40 RBC 4.43 M/mm3 (4.00-5.60) 10/11/19 06:40 Hgb 13.3 GM/dL (11.7-16.9) 10/11/19 06:40 Hct 40.5 % (35.4-49) 10/11/19 06:40 MCV 91.4 fl (80-96) 10/11/19 06:40 MCHC 32.8 g/dl (32.0-35.9) 10/11/19 06:40 RDW 14.0 % (11.9-15.9) 10/11/19 06:40 Plt Count 108 K/MM3 (134-434) L 10/11/19 06:40 MPV 9.5 fl (7.5-11.1) 10/11/19 06:40 CMP Sodium 140 mmol/L (136-145) 10/11/19 06:40 Potassium 3.7 mmol/L (3.5-5.1) 10/11/19 06:40 Chloride 107 mmol/L (98-107) 10/11/19 06:40 Carbon Dioxide 27 mmol/L (21-32) 10/11/19 06:40 Anion Gap 7 MMOL/L (8-16) L 10/11/19 06:40 BUN 30.0 mg/dL (7-18) H 10/11/19 06:40 Creatinine 1.4 mg/dL (0.55-1.3) H 10/11/19 06:40 Random Glucose 93 mg/dL (74-106) 10/11/19 06:40 Calcium 7.7 mg/dL (8.5-10.1) L 10/11/19 06:40 Total Bilirubin 0.7 mg/dL (0.2-1) 10/09/19 06:50 AST 29 U/L (15-37) 10/09/19 06:50 ALT 17 U/L (13-61) 10/09/19 06:50 Alkaline Phosphatase 53 U/L (45-117) 10/09/19 06:50 Total Protein 6.2 g/dl (6.4-8.2) L 10/09/19 06:50 Albumin 2.9 g/dl (3.4-5.0) L 10/09/19 06:50 CARDIAC ENZYMES Creatine Kinase 144 U/L (26-308) 10/08/19 16:32 Troponin I 0.03 ng/ml (0.00-0.05) 10/09/19 06:50 Current Medications Generic Name Dose Route Start Last Admin Trade Name Alysha PRN Reason Stop Dose Admin Acetaminophen 650 mg 10/09/19 00:08 10/09/19 23:28 Tylenol - PO 650 mg Q6H PRN Administration FEVER Enoxaparin Sodium 40 mg 10/09/19 10:00 10/10/19 11:08 Lovenox - SQ 40 mg DAILY MICHOACANO Administration Piperacillin Sod/Tazobactam 50 mls @ 100 mls/hr 10/09/19 18:00 10/11/19 02:18 Sod 3.375 gm/ Dextrose IVPB 100 mls/hr Q8H-IV MICHOACANO Administration Protocol Nicotine 14 mg 10/09/19 11:45 10/10/19 11:08 Nicoderm Patch - TD 14 mg DAILY MICHOACANO Administration Nystatin 1 applic 10/09/19 10:00 10/10/19 21:47 Mycostatin Ointment - TP 1 applic BID MICHOACANO Administration Home Medications Medication Instructions Recorded Beta-Carotene(A) W-C and E/Min 1 tab PO BID 09/16/19 [Ocuvite (Nf) -] Microbiology 10/09/19 15:50 Ankle - Left Gram Stain - Final 10/09/19 15:50 Ankle - Left Wound Culture - Preliminary Presumptive Pseudomonas Spec. Diphtheroid/Corynebacterium 10/09/19 01:20 Blood - Peripheral Venous Blood Culture - Preliminary NO GROWTH OBTAINED AFTER 48 HOURS, INCUBATION TO CONTINUE FOR 3 DAYS. 10/09/19 01:20 Blood - Peripheral Venous Blood Culture - Preliminary NO GROWTH OBTAINED AFTER 48 HOURS, INCUBATION TO CONTINUE FOR 3 DAYS. 10/09/19 04:11 Urine - Urine Clean Catch Urine Culture - Final Normal Urogenital Renee ASSESSMENT AND PLAN: This patient is an 79yom with Pmhx of Venous stasis with open wound slow healing left ankle ulcer , hx of Osteomyelitis, active smoker , who presents after 2 falls at home. #S/P Fall: mechanical. NO syncope. carotid US reviewed. # infected LEFT ANKLE SLOW HEALING ULCER wounds : ON IV antibiotic, ID Dr Back on IV zosyn , wound cx as above # RAKESH: resolved DVT PX : lovenox
[2019-10-11] MEDS: ENOXAPARIN NA (PORCINE) 40 MG/0.4 ML DISP.SYRIN SQ SCH (10:29)
[2019-10-11] MEDS: NICOTINE 14 MG/24 HOURS TOPICAL PATCH TD SCH (10:29)
[2019-10-11] MEDS: NYSTATIN 100000 UNIT/GM TOPICAL OINTMENT 15 GM TUBE TP SCH ×2 (10:29→22:33)
--- NOTE | 2019-10-11 11:51 | PN ---
Progress Note, Physician History of Present Illness: stable feeling much better - Current Medication List Current Medications: Active Medications Acetaminophen (Tylenol -) 650 mg PO Q6H PRN PRN Reason: FEVER Last Admin: 10/09/19 23:28 Dose: 650 mg Documented by: Enoxaparin Sodium (Lovenox -) 40 mg SQ DAILY [facility] Last Admin: 10/11/19 10:29 Dose: 40 mg Documented by: Piperacillin Sod/Tazobactam (Sod 3.375 gm/ Dextrose) 50 mls @ 100 mls/hr IVPB Q8H-IV MICHOACANO; Protocol Last Admin: 10/11/19 10:28 Dose: 100 mls/hr Documented by: Nicotine (Nicoderm Patch -) 14 mg TD DAILY [facility] Last Admin: 10/11/19 10: Dose: 14 mg Documented by: Nystatin (Mycostatin Ointment -) 1 applic TP BID [facility] Last Admin: 10/11/19 10:29 Dose: 1 applic Documented by: - Objective Vital Signs: Vital Signs Temperature 98.0 F 10/11/19 09:00 Pulse Rate 97 H 10/11/19 09:00 Respiratory Rate 18 10/11/19 09:00 Blood Pressure 104/63 10/11/19 09:00 O2 Sat by Pulse Oximetry (%) 95 10/11/19 09:00 Constitutional: Yes: No Distress, Calm Cardiovascular: Yes: S1, S2 Respiratory: Yes: Regular, CTA Bilaterally Gastrointestinal: Yes: Normal Bowel Sounds, Soft Musculoskeletal: Yes: WNL Extremities: Yes: Other Wound/Incision: Yes: Dressing Dry and Intact Neurological: Yes: Alert, Oriented Psychiatric: Yes: Alert, Oriented Labs: CBC, BMP 10/11/19 06:40 10/11/19 06:40 INR, PTT INR 1.13 (0.83-1.09) H 10/08/19 16:32 Assessment/Plan 79 y/o man with h/o Venous stasis, Osteomyelitis, Tactive smoker , Chronic nonhealing left ankle ulcer , with h/o infection , who presents after 2 falls at home. 1- FAlls 2- FEver 3aki weakness plan continue abx wound cx results noted
--- NOTE | 2019-10-11 14:20 | PN ---
Physical Exam: SUBJECTIVE: Patient seen and examined at bedside. No acute events reported overnight. Patient refused to be examined. Physical exam findings as per Dr. Brown. OBJECTIVE: Vital Signs Period Temp Pulse Resp BP Sys/Zhou Pulse Ox Last 24 Hr 98.0 F-99.1 F 90-97 18-18 104-131/63-71 95-99 GENERAL: AAOx3, in no acute distress HEENT: NCAT, PERRLA, EOMI, sclera anicteric, conjunctiva clear, oropharynx clear w/o exudates. MMM. NECK: Normal ROM, supple, no lymphadenopathy, JVD, or masses LUNGS: CTABL no wheezes/ rhonchi/ rales. No distress, speaks in full sentences. No increased work of breathing. HEART: RRR, normal S1 S2, no M/R/G, peripheral pulses 2+ and equal b/l ABDOMEN: Soft, NTND, + BS. No guarding or rebound. No hepatomegaly or splenomegaly. MSK: ROM WNL EXTREMITIES: venous stasis on n/l legs . L medial lower leg ulcer 2x3 cm in diameter with slough at base , and green discharge on gauze. a smaller ulcer is seen 1 cm in diameter with green discharge. fungal infection in last interdigital web on Left NEUROLOGICAL: CN II-XII intact. Normal speech, normal gait, no focal sensorimotor deficits. SKIN: venous stasis ulcers on L medial lower leg Laboratory Results - last 24 hr 10/11/19 10/11/19 06:40 06:40 WBC 4.2 RBC 4.43 Hgb 13.3 Hct 40.5 MCV 91.4 MCH 29.9 MCHC 32.8 RDW 14.0 Plt Count 108 L MPV 9.5 Absolute Neuts (auto) 2.9 Neutrophils % 70.0 Lymphocytes % 17.3 D Monocytes % 8.8 Eosinophils % 3.5 D Basophils % 0.4 Nucleated RBC % 0 Sodium 140 Potassium 3.7 Chloride 107 Carbon Dioxide 27 Anion Gap 7 L BUN 30.0 H Creatinine 1.4 H Est GFR (CKD-EPI)AfAm 54.22 Est GFR (CKD-EPI)NonAf 46.79 Random Glucose 93 Calcium 7.7 L Active Medications Generic Name Dose Route Start Last Admin Trade Name Freq PRN Reason Stop Dose Admin Acetaminophen 650 mg 10/09/19 00:08 10/09/19 23:28 Tylenol - PO 650 mg Q6H PRN Administration FEVER Enoxaparin Sodium 40 mg 10/09/19 10:00 10/11/19 10:29 Lovenox - SQ 40 mg DAILY MICHOACANO Administration Piperacillin Sod/Tazobactam 50 mls @ 100 mls/hr 10/09/19 18:00 10/11/19 10:28 Sod 3.375 gm/ Dextrose IVPB 100 mls/hr Q8H-IV MICHOACANO Administration Protocol Nicotine 14 mg 10/09/19 11:45 10/11/19 10:29 Nicoderm Patch - TD 14 mg DAILY MICHOACANO Administration Nystatin 1 applic 10/09/19 10:00 10/11/19 10:29 Mycostatin Ointment - TP 1 applic BID MICHOACANO Administration ASSESSMENT/PLAN: 79 y/o man with h/o Venous stasis, Osteomyelitis, Tactive smoker , Chronic nonhealing left ankle ulcer , with h/o infection , who presents after 2 falls at home on 10/08/2019. #Falls: mechanical. NO syncope - carotid done: showed minimal atherosclerotic disease with no evidence of hemodynamically significant stenosis. Low velocity flow is noted throughout the right carotid system. #Fever : unclear source. possibly infected wounds on L leg - wound cx reviewed. + pseudomonas, + Diptheroid/Corynebacterium - COVID results: negative - ID consulted: recommended continuing Zosyn and to continue to monitor for fevers - add nystin to L intergigital web/tinea pedis - wound care per dr. Hagan: Algenate to left LE ulcer and compressive vonda wraps to B/L LE #RAKESH : resolved, no clear etiology. - renal US done: morphologically normal kidneys with no evidence of hydronephrosis - cr improved Visit type - Emergency Visit Emergency Visit: No - New Patient This patient is new to me today: No - Critical Care Critical Care patient: No - Discharge Referral Referred to [facility] Med P.C.: No - Medication Review Med list reviewed for High Risk Meds patients 65 and older: Yes ATTENDING PHYSICIAN STATEMENT I saw and evaluated the patient. I reviewed the resident's note and discussed the case with the resident. I agree with the resident's findings and plan as documented. SUBJECTIVE: OBJECTIVE: ASSESSMENT AND PLAN:
[2019-10-12] MEDS ORDERED: DEXTROSE 5%-WATER - 50 ML IVPB ONE ×2 (02:17→08:53)
[2019-10-12] MEDS ORDERED: PIPERACILLIN/TAZOBACTAM 3.375 GM VIAL IVPB ONE ×2 (02:17→08:53)
[2019-10-12] MEDS: PIPERACILLIN/TAZOB 3.375 GM 3.375 GM in DEXTROSE 5%-WATER - 50 ML IVPB SCH ×2 (02:24→09:08)
[2019-10-12 08:03] LABS: BLOOD UREA NITROGEN 27.1 mg/dL (7-18); CREATININE 1.2 mg/dL (0.55-1.3); POTASSIUM 3.9 mmol/L (3.5-5.1)
[2019-10-12 08:05] LABS: BASO % 0.3 % (0-2.0); HEMATOCRIT 41.8 % (35.4-49); HEMOGLOBIN 13.7 GM/dL (11.7-16.9); MCH 29.8 pg (25.7-33.7); MCHC 32.8 g/dl (32.0-35.9); MEAN PLT VOLUME 9.3 fl (7.5-11.1); MONO % 9.5 % (3.8-10.2); NEUT % 69.2 % (42.8-82.8); PLATELET COUNT 125 K/MM3 (134-434); RDW 14.1 % (11.9-15.9); WHITE BLOOD COUNT 4.3 K/mm3 (4.0-10.0)
[2019-10-12] MEDS: NICOTINE 14 MG/24 HOURS TOPICAL PATCH TD SCH (09:08)
[2019-10-12] MEDS: ENOXAPARIN NA (PORCINE) 40 MG/0.4 ML DISP.SYRIN SQ SCH (09:08)
--- NOTE | 2019-10-12 09:10 | PN ---
Progress Note, Physician History of Present Illness: stable no new issues - Current Medication List Current Medications: Active Medications Acetaminophen (Tylenol -) 650 mg PO Q6H PRN PRN Reason: FEVER Last Admin: 10/09/19 23:28 Dose: 650 mg Documented by: Enoxaparin Sodium (Lovenox -) 40 mg SQ DAILY [facility] Last Admin: 10/12/19 09:08 Dose: 40 mg Documented by: Piperacillin Sod/Tazobactam (Sod 3.375 gm/ Dextrose) 50 mls @ 100 mls/hr IVPB Q8H-IV MICHOACANO; Protocol Last Admin: 10/12/19 09:08 Dose: 100 mls/hr Documented by: Nicotine (Nicoderm Patch -) 14 mg TD DAILY [facility] Last Admin: 10/12/19 09:08 Dose: 14 mg Documented by: Nystatin (Mycostatin Ointment -) 1 applic TP BID [facility] Last Admin: 10/11/19 22:33 Dose: 1 applic Documented by: - Objective Vital Signs: Vital Signs Temperature 98.3 F 10/12/19 06:00 Pulse Rate 85 10/12/19 06:00 Respiratory Rate 18 10/12/19 06:00 Blood Pressure 121/63 10/12/19 06:00 O2 Sat by Pulse Oximetry (%) 94 L 10/12/19 06:00 Constitutional: Yes: No Distress, Calm Neck: Yes: Supple, Trachea Midline Cardiovascular: Yes: S1, S2 Respiratory: Yes: Regular, CTA Bilaterally Gastrointestinal: Yes: Normal Bowel Sounds, Soft Musculoskeletal: Yes: WNL Extremities: Yes: Other Wound/Incision: Yes: Dressing Dry and Intact Neurological: Yes: Alert, Oriented Psychiatric: Yes: Alert, Oriented Labs: CBC, BMP 10/12/19 06:48 10/12/19 06:48 INR, PTT INR 1.13 (0.83-1.09) H 10/08/19 16:32 Assessment/Plan 79 y/o man with h/o Venous stasis, Osteomyelitis, Tactive smoker , Chronic nonhealing left ankle ulcer , with h/o infection , who presents after 2 falls at home. 1- FAlls 2- FEver 3aki weakness plan if sensitivities come back and patient is sensitive can be switched to oral levaquin for another 5 days continue abx wound cx results noted
[2019-10-12] MEDS: NYSTATIN 100000 UNIT/GM TOPICAL OINTMENT 15 GM TUBE TP SCH (14:29)
[2019-10-12 15:04] VITALS: BP 127/59; PULSE 96; TEMP 98.3
--- NOTE | 2019-10-12 15:05 | DS ---
Physical Exam: SUBJECTIVE: Patient seen and examined at bedside. No acute events reported overnight. Today the patient has no concerns or complaints. OBJECTIVE: Vital Signs Period Temp Pulse Resp BP Sys/Zhou Pulse Ox Last 24 Hr 97.3 F-99.1 F 82-96 18-20 106-127/59-69 94-96 PHYSICAL EXAM GENERAL: AAOx3, in no acute distress HEENT: NCAT, PERRLA, EOMI, sclera anicteric, conjunctiva clear, oropharynx clear w/o exudates. MMM. NECK: Normal ROM, supple, no lymphadenopathy, JVD, or masses LUNGS: CTABL no wheezes/ rhonchi/ rales. No distress, speaks in full sentences. No increased work of breathing. HEART: RRR, normal S1 S2, no M/R/G, peripheral pulses 2+ and equal b/l ABDOMEN: Soft, NTND, + BS. No guarding or rebound. No hepatomegaly or splenomegaly. MSK: ROM WNL EXTREMITIES: venous stasis on n/l legs. L medial lower leg ulcer 2x3 cm in diameter with slough at base , and green discharge on gauze. a smaller ulcer is seen 1 cm in diameter with green discharge. fungal infection in last interdigital web on Left NEUROLOGICAL: CN II-XII intact. Normal speech, normal gait, no focal sensorimotor deficits. SKIN: venous stasis ulcers on L medial lower leg LABS Laboratory Results - last 24 hr 10/12/19 10/12/19 06:48 06:48 WBC 4.3 RBC 4.60 Hgb 13.7 Hct 41.8 MCV 91.0 MCH 29.8 MCHC 32.8 RDW 14.1 Plt Count 125 L MPV 9.3 Absolute Neuts (auto) 3.0 Neutrophils % 69.2 Lymphocytes % 16.0 Monocytes % 9.5 Eosinophils % 5.0 H Basophils % 0.3 Nucleated RBC % 0 Sodium 142 Potassium 3.9 Chloride 110 H Carbon Dioxide 22 Anion Gap 10 BUN 27.1 H Creatinine 1.2 Est GFR (CKD-EPI)AfAm 65.33 Est GFR (CKD-EPI)NonAf 56.37 Random Glucose 107 H Calcium 8.0 L HOSPITAL COURSE: 79 y/o man with h/o Venous stasis, Osteomyelitis, Tactive smoker, Chronic nonhealing left ankle ulcer, with h/o infection, who presents after 2 falls at home on 10/08/2019. During his stay a carotid was done which showed minimal atherosclerotic disease with no evidence of hemodynamically significant stenosis. Low velocity flow is noted throughout the right carotid system. The patient also had fevers during his stay with an unclear source, most likely from his infected wounds on his left leg. Wound culture was performed on the wound which was positive for pseudomonas and Diptheroid/Corynebacterium. Infectious disease was consulted and they recommended Zosyn during his stay and was discharged on oral Levaquin 500 mg. Nystatin was also prescribed for a left inter web space tenia pedia. Wound care was also consulted for his venous stasis and they recommended Algenate to the left LE ulcer and compressive vonda wraps to both lower extremities. During his stay, the patient also had RAKESH which resolved on it's own with no clear etiology. A renal ultrasound was done which showed morphologically normal kidneys with no evidence of hydronephrosis. Patient was discharged on Bacid PO, Levaquin 500 mg PO daily for 5 days, Xeroform dressing. Patient was recommended to follow up with wound care and infectious disease outpatient. Date of Admission:10/08/19 10/08/2019-Cervical Spine CT- No evidence of acute intracranial pathology. 10/08/2019- Head CT-Moderately severe degenerative arthritis with no fracture or acute pathology. 10/08/2019-Chest X-Ray-No acute chest pathology. 10/09/2019-Carotid Doppler Study-Minimal atherosclerotic disease with no evidence of hemodynamically significant stenoses. Low velocity flow is noted throughout the right carotid system. Clinical correlation is advised. 10/09/2019-Renal Ultrasound-Morphologically normal kidneys with no evidence of hy dronephrosis or acute pathology. Date of Discharge: 10/12/19 Minutes to complete discharge: 36 Discharge Summary Problems reviewed: Yes Reason For Visit: FALL Current Active Problems Closed head injury (Acute) Falls frequently (Acute) Skin tear (Acute) Condition: Stable - Instructions Diet, Activity, Other Instructions: Your visit: You were admitted to the hospital for a fall. You were found to have venous stasis with open wound that is healing. You were treated with antibiotics with improvement of your symptoms. Medications changes: -Please continue to take your antibiotic Levaquin 500mg orally for 5 days -Continue to take all other home medications as prescribed. Follow up: - Please follow-up with Dr. Hagan, Wound Care, in 1 week. - Visit with your Primary Care Provider in 2 weeks. If you do not have a primary care provider you may make an appointment with Dr. Rosario at the [facility] clinic located at [address] [place] [address] ([phone]). -Follow up with within a week period Additional Instructions: -You are being discharged to your home. -Please return to the Emergency Department if you experience worsening pain, fevers, chills, shortness of breath, or chest pain, or if you experience any worsening, new or concerning symptoms. Referrals: Ed Back MD [Staff Physician] - 1 Week Rik Hagan DO [Staff Physician] - 1 Week Disposition: VNS/HOME HEALTH CARE - Home Medications Comprehensive Discharge Medication List: Ambulatory Orders Beta-Carotene(A) W-C and E/Min [Ocuvite (Nf) -] 1 tab PO BID 09/16/19 Bismuth Tribromoph/Petrolatum [Xeroform Petrolatum Dress] 1 each TP DAILY #10 bandage 10/12/19 Lactobacillus Acidophilus [Bacid -] 1 each PO DAILY #30 capsule 10/12/19 Levofloxacin [Levaquin] 500 mg PO DAILY 5 Days #5 tablet 10/12/19 This patient is new to me today: No Emergency Visit: No Critical Care patient: No - Discharge Referral Referred to [facility] Med P.C.: No Physician Referral: Rik Hagan DO ([facility]) ATTENDING PHYSICIAN STATEMENT I saw and evaluated the patient. I reviewed the resident's note and discussed the case with the resident. I agree with the resident's findings and plan as documented. SUBJECTIVE: OBJECTIVE: ASSESSMENT AND PLAN:
--- NOTE | 2019-10-12 18:33 | PN ---
Teaching Attending Note Name of Resident: Santy Kim ATTENDING PHYSICIAN STATEMENT I saw and evaluated the patient. I reviewed the resident's note and discussed the case with the resident. I agree with the resident's findings and plan as documented. SUBJECTIVE: OBJECTIVE: Vital Signs Temperature 98.3 F 10/12/19 15:02 Pulse Rate 96 H 10/12/19 15:02 Respiratory Rate 18 10/12/19 15:02 Blood Pressure 127/59 L 10/12/19 15:02 O2 Sat by Pulse Oximetry (%) 96 10/12/19 10:00 PE: per resident's note CBCD WBC 4.3 K/mm3 (4.0-10.0) 10/12/19 06:48 RBC 4.60 M/mm3 (4.00-5.60) 10/12/19 06:48 Hgb 13.7 GM/dL (11.7-16.9) 10/12/19 06:48 Hct 41.8 % (35.4-49) 10/12/19 06:48 MCV 91.0 fl (80-96) 10/12/19 06:48 MCHC 32.8 g/dl (32.0-35.9) 10/12/19 06:48 RDW 14.1 % (11.9-15.9) 10/12/19 06:48 Plt Count 125 K/MM3 (134-434) L 10/12/19 06:48 MPV 9.3 fl (7.5-11.1) 10/12/19 06:48 CMP Sodium 142 mmol/L (136-145) 10/12/19 06:48 Potassium 3.9 mmol/L (3.5-5.1) 10/12/19 06:48 Chloride 110 mmol/L (98-107) H 10/12/19 06:48 Carbon Dioxide 22 mmol/L (21-32) 10/12/19 06:48 Anion Gap 10 MMOL/L (8-16) 10/12/19 06:48 BUN 27.1 mg/dL (7-18) H 10/12/19 06:48 Creatinine 1.2 mg/dL (0.55-1.3) 10/12/19 06:48 Random Glucose 107 mg/dL (74-106) H 10/12/19 06:48 Calcium 8.0 mg/dL (8.5-10.1) L 10/12/19 06:48 Total Bilirubin 0.7 mg/dL (0.2-1) 10/09/19 06:50 AST 29 U/L (15-37) 10/09/19 06:50 ALT 17 U/L (13-61) 10/09/19 06:50 Alkaline Phosphatase 53 U/L (45-117) 10/09/19 06:50 Total Protein 6.2 g/dl (6.4-8.2) L 10/09/19 06:50 Albumin 2.9 g/dl (3.4-5.0) L 10/09/19 06:50 CARDIAC ENZYMES Creatine Kinase 144 U/L (26-308) 10/08/19 16:32 Troponin I 0.03 ng/ml (0.00-0.05) 10/09/19 06:50 Home Medications Medication Instructions Recorded RX: Beta-Carotene(A) W-C and E/Min 1 tab PO BID 09/16/19 [Ocuvite (Nf) -] Bismuth Tribromoph/Petrolatum 1 each TP DAILY #10 bandage 10/12/19 [Xeroform Petrolatum Dress] Lactobacillus Acidophilus [Bacid -] 1 each PO DAILY #30 capsule 10/12/19 Levofloxacin [Levaquin] 500 mg PO DAILY 5 Days #5 tablet 10/12/19 Microbiology 10/09/19 15:50 Ankle - Left Gram Stain - Final 10/09/19 15:50 Ankle - Left Wound Culture - Final Pseudomonas Aeruginosa Diphtheroid/Corynebacterium Staphylococcus Coagulase Neg 10/09/19 01:20 Blood - Peripheral Venous Blood Culture - Preliminary NO GROWTH OBTAINED AFTER 72 HOURS, INCUBATION TO CONTINUE FOR 2 DAYS. 10/09/19 01:20 Blood - Peripheral Venous Blood Culture - Preliminary NO GROWTH OBTAINED AFTER 72 HOURS, INCUBATION TO CONTINUE FOR 2 DAYS. 10/09/19 04:11 Urine - Urine Clean Catch Urine Culture - Final Normal Urogenital Renee ASSESSMENT AND PLAN: This patient is an 79yom with Pmhx of Venous stasis with open wound slow healing left ankle ulcer , hx of Osteomyelitis, active smoker , who presents after 2 falls at home. #S/P Fall: mechanical. NO syncope. carotid US reviewed. # infected LEFT ANKLE SLOW HEALING ULCER wounds : s/p IV antibiotic, sensitivity is back , sensitive to levaquin , as per ID to dc the patient on levaquin 500mg po daily with Bacid , wound cx as above . follow with wound care clinic, follow with etl data architect and vascular surgeon # RAKESH: resolved dc patient home
== END 2019-10-12 15:31 | disposition home health service (06) | DRG 300 ==
LOC: JER 15:02 → JERBED 18:40 → J7W 21:41
PROVIDERS: ADMIT Internal Medicine; ATTEND Internal Medicine
DX: I83.023 Varicose veins of left lower extremity with ulcer of ankle (principal); N17.9 Acute kidney failure, unspecified; L97.328 Non-pressure chronic ulcer of left ankle with other specified severity; B96.5 Pseudomonas (aeruginosa) (mallei) (pseudomallei) as the cause of diseases classified elsewhere; R29.6 Repeated falls; F17.210 Nicotine dependence, cigarettes, uncomplicated; W18.30XA Fall on same level, unspecified, initial encounter; Y92.091 Bathroom in other non-institutional residence as the place of occurrence of the external cause; D72.829 Elevated white blood cell count, unspecified
CPT/HCPCS: 29581-LT; 36415; 70450-TC; 71046-TC-FY; 72125-TC; 76775-TC; 80048; 80053; 81003; 82550; 83735; 84100; 84443; 84484; 85025; 85610; 85730; 87040; 87070; 87086; 87186; 87205; 90715; 93005; 93010; 93880-TC; 97116-GP; 97162-GP; 99285-25; A4649; G0463-25; U0003